=== PATIENT | female | born 1945 | race Caucasian/White ===

== ENCOUNTER 2022-05-18 06:38 | Inpatient (IN) ==
--- NOTE | 2022-04-14 09:23 | PAT Medication Instructions ---
Medication Instructions Date of Service April 14, 2022 Home Medications aspirin 81 mg tablet,delayed release (Aspir-) 81 mg PO HS magnesium oxide 400 mg PO HS simvastatin 40 mg tablet 40 mg PO HS lisinopril 10 mg tablet 10 mg PO HS metformin 500 mg tablet 500 mg PO BID metoprolol tartrate 50 mg tablet 50 mg PO BID DO NOT take the morning of surgery metformin 500 mg tablet 500 mg PO BID Take morning of surgery With a small sip of water, OTHERWISE NOTHING TO EAT OR DRINK AFTER MIDNIGHT: metoprolol tartrate 50 mg tablet 50 mg PO BID Take evening before surgery aspirin 81 mg tablet,delayed release (Aspir-) 81 mg PO HS (unless directed otherwise by surgeon) magnesium oxide 400 mg PO HS simvastatin 40 mg tablet 40 mg PO HS lisinopril 10 mg tablet 10 mg PO HS metformin 500 mg tablet 500 mg PO BID metoprolol tartrate 50 mg tablet 50 mg PO BID Other Notes If you have any questions please call us at [phone] or [phone] or [phone] or [phone]
--- NOTE | 2022-04-20 09:14 | Anesthesiology Consultation ---
Date of Service April 20, 2022 Assessment & Plan (1) Encounter for pre-operative examination: - awaiting PCP pre-op evaluation. - hyperkalemia at 5.7, anemia H&H , abnormal UA and Cr 1.2 relayed to covering physician, Dr. Zac Fernandez who is covering for patient's PCP. He confirmed pt name, and her phone number, states he will be in contact with her today for further evaluation/management of abnormal findings as above. I will also fax optimization form for formal clearance to PCP office. - will request most recent echocardiogram, stress test and carotid doppler. - PONV: pt states without scop patch has done well with recent surgeries including L TKA; in past, required admission for same day surgery due to PONV. - left arm restriction. - awareness during L TKA. - Outpatient joint assessment: Patient is currently scheduled for inpatient pathway. If re-evaluated pending system levels during current pandemic/surgeon requests outpatient pathway, patient is not recommended candidate for outpatient joint program from anesthesia standpoint. - cardiology pre-op evaluation 04/19/22: "...preoperative cardiac clearance...stress echocardiogram 03/2014 1-1.5 mm of horozontal [sic]/downsloping ST depression in the inferior and lateral leads. Exercise stress echo is negative for both ischemia and infarction. 7 METS...echocardiogram 04/2020 EF 60-65%. Carotid duplex 04/2020 no hemodynamically significant ICA stenosis-bilaterally...preoperative risk assessment: doing well from a CV standpoint today. Over the past 30 days there has been no active cardiovascular conditions defined as: acute coronary syndrome, decompensated heart failure, severe or symptomatic valvular heart disease, or cardiac arrhythmias...from a functional capacity standpoint, patient is able to perform activities at or above 4 METS...echocardiogram 05/13/20: EF 60-65%, NRWMA, RV nL, mild mitral calcification, no stenosis. Aortic valve trileaflet, no evidence of stenosis...Based on history, physical examination, and the above information, I do not recommend further invasive or noninvasive cardiovascular testing or procedures. We should proceed with her surgery, accepting the cardiovascular risk involved and under perioperative beta-blockade..." - COVID screening: Per assessment on 04/20/2022: Travel screen negative, no known COVID-19 positive contacts or current COVID-19 related symptoms in past 2 weeks. Pt vaccinated. To surgeon's discretion if preop COVID testing needed. Chart Review Chart Review: Pending: Refer to Additional Notes / Consult section and Patient seen in Pre Admission Testing Teaching & Discussion Pre-Anesthesia Teaching/Discussion Notes: Instructed NPO after midnight before surgery, except medications with 15 cc of water. Medication instructions provided according to the PAT guidelines. History Surgery Operation Date: 05/18/22 14:35 Proposed Procedures p Right Total Knee Arthroplasty - Jayce Rowe MD Height/Weight Height: 5 ft 6 in Weight: 98.2 kg Allergies Allergy/AdvReac Type Severity Reaction Status Date / Time No Known Allergies Allergy Verified 04/13/22 15:03 Medications Home Medications Medication Instructions Recorded Confirmed Last Taken aspirin 81 mg tablet,delayed 81 mg PO HS 03/31/20 04/13/22 Unknown release (Aspir-) magnesium oxide 400 mg PO HS 03/31/20 04/13/22 Unknown simvastatin 40 mg tablet 40 mg PO HS 03/31/20 04/13/22 Unknown lisinopril 10 mg tablet 10 mg PO HS 04/13/22 04/13/22 Unknown metformin 500 mg tablet 500 mg PO BID 04/13/22 04/13/22 Unknown metoprolol tartrate 50 mg tablet 50 mg PO BID 04/13/22 04/13/22 Unknown Past Medical History Medical History (Updated 04/20/22 @ 09:37 by Ami Mcmanus PA-C) Deep vein thrombosis RT/LEFT LEG WITH B/L PE'S (S/P LEFT TKA) 2015. TX WITH ANTICOAGULATION X 3 MONTHS. Diabetes mellitus, type 2 NIDDM Hepatic steatosis Hx of breast cancer 2014 RT - radiation// 11/03/2021 LT -lumpectomy with lymph nodes-left arm restriction Hx of cardiac murmur "systolic murmur" per [facility] records Hyperlipidemia Hypertension controlled, stable per pt Limb alert care status left arm Pulmonary embolism 2015 AFTER KNEE SURGERY (PT WAS ALSO TAKING TAMOXIFEN AT THAT TIME) TOOK BLOOD THINNER FOR 3 MONTHS AFTER DX Patient denies h/o stroke, seizures, heart attack, heart failure or blood transfusions. Exercise / Class Metabolic Activity II 4-5 Yardwork/Stairs/Walk up hill (denies CP or SOB with 1 FOS) Past Family History Family History Mother Family history of diabetes mellitus Brother Family history of diabetes mellitus Past Surgical History Surgical History (Updated 04/20/22 @ 09:38 by Ami Mcmanus PA-C) H/O partial mastectomy RT H/O unilateral oophorectomy History of colonoscopy History of lumpectomy of left breast and lymph node removal breast cancer 10/2021 - limb restriction History of tonsillectomy History of tooth extraction History of total knee replacement LEFT Nausea and vomiting after administration of anesthetic agent Past Anesthesia History No Family Hx of Anesthesia Complications and Other (awareness during L TKA) History of PONV History of PONV (scop patch with initial breast surgery, states without patch with recent surgeries has had mild nausea without vomiting) and Hx of Motion Sickness Social History Smoking Status: Never smoker Do You Dip or Chew Tobacco: No Hx Alcohol Use: Yes Alcohol type: wine alcohol intake frequency: a few times a month Hx Substance Use: No substance use type: does not use Review of Systems Snoring, denies witnessed apneas. Patient denies chest pain, shortness of breath, dyspnea on exertion, reflux, fever, chills, cough, wheezing, or palpitations. Physical Exam Vital Signs Vitals P 65 TEMP 98.4 SP02 98% on RA RESP 17 Physical Full cervical extension range of motion without pain TMD 3.5 finger breadths Mallampati Score 2, small oral opening Dentition: intact, denies chipped or loose teeth, caps/crowns, implants or bridges Lungs: normal respiratory effort. Clear throughout to auscultation, no adventitious breath sounds Cardiac: regular rate and rhythm, no murmurs noted Carotid arteries: negative bruit bilat Lab Results Anesthesia Preop Results Results Anesthesia Widget: WBC 9.69 K/ul (4.8-10.8) 04/20/22 Hgb 10.6 g/dl (12.0-16.0) L 04/20/22 Hct 34.0 % (34.1-44.9) L 04/20/22 Plt 335 K/uL (130-400) 04/20/22 Na 138 mmol/L (136-145) 04/20/22 K 5.7 mmol/L (3.5-5.1) H 04/20/22 Cl 108 mmol/L (98-107) H 04/20/22 CO2 23 mmol/L (21-32) 04/20/22 BUN 28 mg/dl (6-23) H 04/20/22 Creat 1.27 mg/dl (0.6-1.2) H 04/20/22 Glucose Level 119 mg/dl (70-99(Fasting)) H 04/20/22 PT 10.2 Seconds (9.0-12.0) 04/20/22 PTT 26.0 Seconds (21.0-31.0) 04/20/22 INR 1.0 (0.9-1.1) 04/20/22 HA1c 7.6 % (4.5-5.6) H 04/20/22 Urine Color Yellow 04/20/22 Urine Appearance Cloudy (Clear) A 04/20/22 Urine pH 5.0 (4.5-7.5) 04/20/22 Urine Specific Bertram 1.023 (1.000-1.030) 04/20/22 Urine Protein Negative (Negative) 04/20/22 Urine Glucose (UA) Negative (Negative) 04/20/22 Urine Ketones Trace (Negative) H 04/20/22 Urine Blood Negative (Negative) 04/20/22 Urine Nitrite Negative (Negative) 04/20/22 Urine Bilirubin Negative (Negative) 04/20/22 Urine Urobilinogen Negative (Negative) 04/20/22 Urine Leukocyte Esterase 1+ (Negative) H 04/20/22 Urine WBC (Auto) 10-30 /hpf (0-5) H 04/20/22 Urine RBC (Auto) 0-4 /hpf (0-4) 04/20/22 Urine Hyaline Casts (Auto) 1-5 /lpf (0-5) 04/20/22 Urine Epithelial Cells (Auto) >30 /lpf (0-5) H 04/20/22 Urine Bacteria (Auto) 2+ (Negative) H 04/20/22 Blood Type A Positive 04/20/22 Antibody Screen NEGATIVE 04/20/22 Testing Electrocardiogram Date: 03/28/22 Sinus rhythm, rate 92 bpm Nonspecific T wave abnormality Chest X-Ray Date: 04/20/22 PA and lateral chest radiographs are compared to study dated 04/05/2020 and correlated with chest CT dated 06/14/2015. The cardiomediastinal silhouette is unremarkable. Chronic interstitial thickening is similar to previous. There is mild bibasilar scarring/atelectasis. The lungs and pleural spaces are otherwise clear. There is no pneumothorax. The skeletal structures are osteopenic. The bony thorax appears intact. Arthritic change is noted in the shoulders and spine. IMPRESSION: No active disease in the chest.
--- NOTE | 2022-05-17 17:36 | History & Physical Report ---
Date of Service May 17, 2022 Assessment & Plan (1) Primary osteoarthritis of right knee: Plan: Treatment options discussed with the patient. She is failed conservative measures and would like to proceed with knee replacement. Risks, benefits and alternatives to surgery including but not limited to infection, DVT, pain, stiffness, need for revision surgery, damage to blood vessels, damage to nerves, PE, , were discussed with the patient and they wish to proceed. Plan on right total knee arthroplasty about Dr. Rowe on May 18. We will plan on outpatient physical therapy. Reported on Xarelto postop DVT prophylaxis due to history of PE. All questions answered. Follow-up postop. History of Present Illness Chief Complaint: Right knee pain Primary Care Provider: Trent Serrano DO 76-year-old female with past medical history significant for diabetes, hypertension, high cholesterol, PE, breast cancer who presents with ongoing right knee pain. She has failed conservative measures. Patient's pain is interfering with her daily activities. She would like proceed with knee replace ment. Patient denies headaches, sweats, fevers, chills, double vision, blurred vision, cough, sore throat, dysphagia, chest pain, sob, wheezing, n/v/d/c, numbness, tingling, fatigue, urinary symptoms, mood disorders. ROS positive for right knee pain and stiffness. Allergies Allergy/AdvReac Type Severity Reaction Status Date / Time No Known Allergies Allergy Verified 04/13/22 15:03 Home Medications Medication Instructions Recorded Confirmed Type aspirin 81 mg tablet,delayed 81 mg PO HS 03/31/20 04/13/22 History release (Aspir-) magnesium oxide 400 mg PO HS 03/31/20 04/13/22 History simvastatin 40 mg tablet 40 mg PO HS 03/31/20 04/13/22 History lisinopril 10 mg tablet 10 mg PO HS 04/13/22 04/13/22 History metformin 500 mg tablet 500 mg PO BID 04/13/22 04/13/22 History metoprolol tartrate 50 mg tablet 50 mg PO BID 04/13/22 04/13/22 History Past Med/Surg History Medical History (Updated 05/17/22 @ 17:41 by Gennaro Espinal PA-C) Deep vein thrombosis RT/LEFT LEG WITH B/L PE'S (S/P LEFT TKA) 2015. TX WITH ANTICOAGULATION X 3 MONTHS. Diabetes mellitus, type 2 NIDDM Hepatic steatosis Hx of breast cancer 2014 RT - radiation// 11/03/2021 LT -lumpectomy with lymph nodes-left arm restriction Hx of cardiac murmur "systolic murmur" per [facility] records Hyperlipidemia Hypertension controlled, stable per pt Limb alert care status left arm Pulmonary embolism 2016 AFTER KNEE SURGERY (PT WAS ALSO TAKING TAMOXIFEN AT THAT TIME) TOOK BLOOD THINNER FOR 3 MONTHS AFTER DX Surgical History (Updated 04/20/22 @ 09:38 by Ami Mcmanus PA-C) H/O partial mastectomy RT H/O unilateral oophorectomy History of colonoscopy History of lumpectomy of left breast and lymph node removal breast cancer 10/2021 - limb restriction History of tonsillectomy History of tooth extraction History of total knee replacement LEFT Nausea and vomiting after administration of anesthetic agent Family History Mother Family history of diabetes mellitus Brother Family history of diabetes mellitus Social History Smoking Status: Never smoker Second Hand Exposure: No; Hx Alcohol Use: Yes Alcohol type: wine Hx Substance Use: No Preferred Language: Estonian Communication Ability: Effective Property Claims Manager Required: No Beliefs That Will Affect Care: None Current Living Situation: Alone Current Living Situation Comment: Daughter staying with pt post op Feels Safe at Home: Yes Assistive Devices: None Review of Systems All systems reviewed & are unremarkable except as noted in HPI & below Physical Exam Constitutional: well developed and well nourished; no acute distress Eyes: PERRL, conjunctivae normal, anicteric sclerae ENMT: external ear and nose normal, oropharynx normal Neck: trachea midline, no thyromegaly Respiratory: normal respiratory effort, lungs clear to auscultation Cardiovascular: RRR, no murmur, no edema Musculoskeletal: Right knee: Varus alignment. Mild joint effusion with medial joint line tenderness. Mild crepitation with motion. Positive Latia's. Stable to valgus and varus stress test. Range of motion is 10 to 100 degrees. Skin: no rashes, warm and dry Neurologic: patellar DTR's 2+ bilat, sensation intact Psychiatric: A+Ox3, euthymic affect Results & Data ([facility]) Diagnostic Findings Right knee radiographs demonstrate end-stage osteoarthritis right knee with tricompartmental osteoarthritic changes with subluxation of femur on tibia. Patient has [id number] medial compartment.
[~2022-05-18 06:38] MED LIST: ACETAMINOPHEN 500 MG TAB PO SCH; BUPIVACAINE 0.25% 30 ML VIAL ONE; BUPIVACAINE 0.5 % 5 MG/1 ML PF 10ML VIAL ONE; CeleBREX 200 MG CAP PO SCH; FAMOTIDINE 20 MG TAB PO SCH; GABAPENTIN 300 MG CAP PO SCH; LR 15ML/HR IV SCH; METOCLOPRAMIDE HCL 10 MG TABLET PO SCH; ROPIVACAINE 0.5% HCL/PF 150 MG, BUPIVACAINE 0.75% MPF 20 ML, EPINEPHrine 30MG/30ML (OR ... INSTIL SCH; TRANEXAMIC ACID 1,000 MG **IV Intra-op IV SCH; TRANEXAMIC ACID 1,000 MG **IV Pre-op IV SCH; ceFAZolin 2000MG 2,000 MG/15 ML SYR IV SCH
[2022-05-18] MEDS ORDERED: LIDOCAINE 2% 20 MG/ML 5 ML SYR IV ONE (06:51)
[2022-05-18] MEDS ORDERED: PROPOFOL IV EMULSION 10 MG/ML 20 ML VIAL IV ONE ×5 (06:51→15:21)
[2022-05-18] MEDS ORDERED: MIDAZOLAM HCL 1 MG/ML 2ML VIAL ONE (06:52)
[2022-05-18] MEDS ORDERED: fentaNYL citrate 100 MCG/2 ML VIAL ONE ×2 (06:52→10:55)
[2022-05-18] MEDS ORDERED: ORTHO JOINT ANESTHETIC ONE (07:04)
--- NOTE | 2022-05-18 07:30 | History & Physical Bridge Note ---
Date of Service May 18, 2022 History & Physical Bridge Note I have examined the patient, reviewed the History & Physical and in the interval since the performance of the History & Physical I have noted the following changes of clinical significance: no changes noted
[2022-05-18] MEDS ORDERED: ATROPINE SULFATE 0.1 MG/ML 10ML SYR IV PRN (08:18)
[2022-05-18] MEDS ORDERED: HYDROmorphone INJ 1 MG/ML SYRINGE IV PRN (08:18)
[2022-05-18] MEDS ORDERED: ONDANSETRON INJ 2 MG/ML 2 ML VIAL IV PRN (08:18)
[2022-05-18] MEDS ORDERED: fentaNYL citrate 100 MCG/2 ML VIAL IV PRN (08:18)
[2022-05-18] MEDS ORDERED: ePHEDrine sulfate 50 MG/ML AMP IV PRN (08:18)
[2022-05-18] MEDS ORDERED: PHENYLEPHRINE HCL 10 MG/ML VIAL ONE (09:55)
[2022-05-18] MEDS ORDERED: ONDANSETRON INJ 2 MG/ML 2 ML VIAL ONE ×2 (10:01→11:00)
--- NOTE | 2022-05-18 11:08 | Post Operative Brief Note ---
Immediate Post Op Note v1 Date of Surgery May 18, 2022 Pre & Post Diagnosis Operation Date: 05/18/22 09:10 Pre-Op Diagnosis: Primary Osteoarthritis of Right Knee Post-Op Diagnosis: Primary Osteoarthritis of Right Knee I identified the patient and participated in the time-out.: Yes Procedure Operation Date: 05/18/22 09:10 Actual Procedures p Right Total Knee Arthroplasty(Right) - Jayce Rowe MD Surgeon Jayce Rowe MD Security Installer Jimbo ANGUIANO Estimated Blood Loss 5 Findings Consistent with Post-Op Diagnosis Specimens Bone cuts Drains Hemovac Drain Anesthesia Type MAC Spinal Regional Complications none Disposition Disposition: Recovery Room Overlapping Procedure I was present for: the critical portions of procedure.
--- NOTE | 2022-05-18 11:18 | Operative Report ---
Post Operative Report Pre & Post Diagnosis Operation Date: 05/18/22 09:10 Pre-Op Diagnosis: Primary Osteoarthritis of Right Knee Post-Op Diagnosis: Primary Osteoarthritis of Right Knee I identified the patient and participated in the time-out.: Yes Procedure Operation Date: 05/18/22 09:10 Actual Procedures p Right Total Knee Arthroplasty(Right), application superficial wound VAC- Jayce Rowe MD Surgeon Jayce Rowe MD Appraiser Jimbo ANGUIANO Estimated Blood Loss 5 Findings Consistent with Post-Op Diagnosis Specimens Bone cuts Drains 2 Hemovac Anesthesia Type MAC Spinal Regional Complications none Disposition Accompanied Patient To Recovery: No Indications 76-year-old female with end-stage osteoarthritis of her right knee. She has limited range of motion and pain and [id number] medial compartment with varus knee with tricompartmental osteoarthritic changes. Description of Procedure The patient was taken to the operating room and anesthetized under spinal MAC regional block. Patient was placed supine on the the operating table. A pneumatic tourniquet was placed about the right upper thigh. The knee exam demonstrated 10 through 90 degrees range of motion and stiff knee no varus valgus instability no pseudolaxity positive Christina exam. The involved leg was elevated exsanguinated with Esmarch bandage and the pneumatic tourniquet was raised to 325 millimeters mercury. A longitudinal incision was made across the anterior knee. Skin flaps were elevated. An incision was made into the medial retinaculum and extended up into the mid third of the quadriceps tendon and extended down to the tibial tubercle. Intra-articular findings demonstrated tricompartmental osteoarthritis [id number] eburnated bone medial compartment but osteoarthritic changes in all compartments. Multiple loose bodies chronic medial meniscus tear. There were large notch osteophytes closing the notch. The knee was exposed by excising the posterior cruciate ligament and menisci and all loose bodies. The infrapatellar fat pad was resected. The fat pad over the anterior femur at the upper aspect of the articular surface was resected for placement of the component in that area. A subperiosteal peel lateral release was performed around the patella. The [employer]nez [employer]hew journey 2.0 total knee arthroplasty system was utilized for the procedure. The custom femoral cutting guide was pinned in position. The distal femoral cut was made. The size 5, 5 in 1 cutting block was placed. The anterior posterior and chamfer cuts were made. The knee was extended and a free hand cut technique was performed to the patella. The patella with was measured and the width was reproduced using a 32 symmetrical patella component. 3 drill holes are made for the patella component pegs. The tibia was then subluxed. The custom tibial cutting block was pinned in position and the proximal tibial cut was made with the oscillating saw. The size 4 tibial trial was externally rotated in line with the tibial tubercle and pinned in position. The punch for the stem was used. The femoral trial was inserted and centered the notch cutting devices were used and the collet was placed. Tibial trials were used for the insert. The size 12 posterior stabilized trial gave balanced ligaments through full range of motion. Patella tracking was assessed with range of motion. The patella tracked centrally. The trials were removed. The Orthomix anesthetic cocktail was injected per protocol. The cut bone surfaces and soft tissue were copiously irrigated with pulsatile lavage saline solution. The final components were cemented with Simplex cement. The final components were Mart[employer]hew journey 2.0 right posterior stabilized femoral component, size 4 right tibial component, 12 right posterior stabilized tibial polyethylene and a 32 symmetrical patella. After the cement cured, the Betadine soak was used for 3 minutes. The knee was then copiously irrigated with pulsatile lavage saline solution. 2 drains were brought out laterally connected to Hemovac. The quadriceps tendon and medial retinaculum were closed with interrupted [id number] #1 Vicryl sutures. The knee was taken through full range of motion and repair was secure. Knee range of motion was 0 through 130 degrees. the subcutaneous tissues were closed with 2-0 Vicryl sutures. The skin was closed with leonora. Manpreet and Acticoat superficial wound VAC was applied. The tourniquet was let down and the patient had good capillary refill to the extremity. The patient tolerated the procedure well. My physician human resource assistant Jimbo ANGUIANO participated as surgical first assistant and was integral part in all aspects of the procedure including prepping, draping, leg positioning, soft tissue retraction, instrument management and assisted in the closure, application of a manpreet and Acticoat superficial wound VAC and will participate in postoperative care the patient. I attest to the content of the Intraoperative Record and any orders documented therein. Any exceptions are noted below.
--- NOTE | 2022-05-18 12:37 | XRay Report ---
RIGHT KNEE 2 VIEWS History: Right total knee arthroplasty. Degenerative arthritis. Postop. FINDINGS: The patient is status post a right total knee arthroplasty. The hardware is intact. No frac ture or dislocation. Skin leonora and surgical drains are in place. IMPRESSION: Right total knee arthroplasty. No evidence for hardware complication. ACT 112: Negative or not required by law. Electronically signed by: Robert Stinson M.D. 05/18/2022 12:36 PM
[2022-05-18] MEDS ORDERED: diphenhydrAMINE 50 MG/ML VIAL IV PRN (12:47)
[2022-05-18] MEDS ORDERED: MAGNESIUM HYDROXIDE SUSP 30 ML UDC PO PRN (12:47)
[2022-05-18] MEDS ORDERED: oxyCODONE HCL IR 5 MG TAB (IMMEDIATE RELEASE) PO PRN (12:47)
[2022-05-18] MEDS ORDERED: NALOXONE HCL 0.4 MG/1 ML VIAL/CARP IV PRN (12:47)
[2022-05-18] MEDS ORDERED: PHARMACY GLYCEMIC MGMT CONSULT PRN (12:47)
[2022-05-18] MEDS ORDERED: bisacodyL 10 MG SUPP PR PRN (12:47)
[2022-05-18] MEDS ORDERED: GLUCOSE 40% GEL 15 GM TUBE PO PRN (13:00)
[2022-05-18] MEDS ORDERED: GLUCAGON FOR INJ 1 MG VIAL IM PRN (13:00)
[2022-05-18] MEDS ORDERED: DEXTROSE 50% 50 ML SYRINGE IV PRN (13:00)
[2022-05-18] MEDS ORDERED: CARBOHYDRATES FOR HYPOGLYCEMIA PO PRN (13:00)
[2022-05-18] MEDS ORDERED: GLUCOSE 10 TAB/TUBE PO PRN (13:00)
[2022-05-18] MEDS: SODIUM CHLORIDE 0.9% 1000ML 1,000 ML IV SCH ×2 (14:07→21:50)
--- NOTE | 2022-05-18 14:23 | Pharmacy Report ---
Pharmacy Glycemic Short Note 2 - Date of Service May 18, 2022 - Glycemic Short BSG Results (Last 24 hours): 05/18/22 05/18/22 05/18/22 06:58 11:49 14:09 POC Glucose 149 H 123 H 158 H OUTPATIENT ANTIDIABETIC REGIMEN: * metformin 500 mg PO BID * HbA1C = 7.6% (04/20/22) ASSESSMENT: * Ms Fish is a 76 y/o F with a PMH of T2 DM who presents for R TKA. * Patient's BSGs prior to surgery were 149-123 mg/dL and after surgery were 158 mg/dL. * Based upon HbA1C, start lantus 0.2 units/kg or 20 units daily. * Novolog weight-based stress of 2. * Plan to resume metformin tomorrow. PLAN FOR INPATIENT GLYCEMIC CONTROL: * Hold outpatient oral diabetes medications * Basal insulin * Lantus 20 units SQ daily starting 05/18/22 * Bolus insulin * NovoLog per scale ACHS or Q6hrs while NPO * Goal Range: Low 110 mg/dL - High 140 mg/dL * Correction Factor: 25 mg/dL/unit * Nutritional / Prandial insulin per carb ratio of 1 unit per 8 grams CHO consumed
[2022-05-18] MEDS: ONDANSETRON INJ 2 MG/ML 2 ML VIAL IV PRN (14:35)
[2022-05-18] MEDS: ACETAMINOPHEN 500 MG TAB PO SCH ×2 (14:55→21:51)
--- NOTE | 2022-05-18 15:42 | Hospitalist Consultation ---
Date of Consultation May 18, 2022 Assessment & Plan (1) Status post total right knee replacement: POD#0 Pain and VTE management per orthopedics (2) History of pulmonary embolism: s/p left TKA in 2016 (while also taking tamoxifen). Agree with prophylactic Xarelto. (3) Hx of breast cancer: 2014 right - radiation 11/03/2021 left - lumpectomy with lymph nodes-left arm restriction (4) Hypertension: Continue lisinopril 10mg PO HS and metoprolol tartrate 50mg PO BID (5) Hyperlipidemia: Continue simvastatin 40mg PO HS (6) Diabetes mellitus, type 2: HbA1C 7.6 - can continue metformin alone on discharge - PCP to consider up titrating dose Continue pharmacy glycemic control during inpatient stay Plan VTE Prophylaxis - per orthopedics, Xarelto 10mg PO daily Diet - T2DM Disposition - per orthopedics, no ongoing medical issues requiring extended stay Thank you for the consult. We will review patient with AM labs tomorrow. History of Present Illness Reason for Consultation: Post operative management Attending Physician: Jayce Rowe MD History of Present Illness Bren Fish is a 76 year old female here for elective right total knee arthro plasty performed by Dr Rowe today. No post operative complications noted with estimated blood loss of 5ml. She denies any acute concerns or questions. No shortness of breath or chest pain. She has a significant history of bilateral pulmonary embolism following her prior knee operation however this was also while taking tamoxifen. She has type 2 diabetes with HbA1C 7.6 at the beginning of April - treated with metformin 500mg PO BID. She has hypertension - taking metoprolol tartrate 50mg PO BID and lisinopril 10mg PO HS - she reports this is well controlled. She has hyperlipidemia without any prior heart attack or stroke - taking simvastatin 40mg PO HS for this Allergies Allergy/AdvReac Type Severity Reaction Status Date / Time No Known Allergies Allergy Verified 05/18/22 07:02 Home Medications Medication Instructions Recorded Confirmed Type aspirin 81 mg tablet,delayed 81 mg PO HS 03/31/20 05/18/22 History release (Aspir-) magnesium oxide 400 mg PO HS 03/31/20 05/18/22 History simvastatin 40 mg tablet 40 mg PO HS 03/31/20 05/18/22 History lisinopril 10 mg tablet 10 mg PO HS 04/13/22 05/18/22 History metformin 500 mg tablet 500 mg PO BID 04/13/22 05/18/22 History metoprolol tartrate 50 mg tablet 50 mg PO BID 04/13/22 05/18/22 History Patient History Medical History (Updated 05/18/22 @ 15:45 by Meng De La Cruz MD) Deep vein thrombosis RT/LEFT LEG WITH B/L PE'S (S/P LEFT TKA) 2015. TX WITH ANTICOAGULATION X 3 MONTHS. Diabetes mellitus, type 2 NIDDM Hepatic steatosis Hx of breast cancer 2014 RT - radiation// 11/03/2021 LT -lumpectomy with lymph nodes-left arm restriction Hx of cardiac murmur "systolic murmur" per [facility] records Hyperlipidemia Hypertension controlled, stable per pt Limb alert care status left arm Pulmonary embolism 2016 AFTER KNEE SURGERY (PT WAS ALSO TAKING TAMOXIFEN AT THAT TIME) TOOK BLOOD THINNER FOR 3 MONTHS AFTER DX Surgical History (Updated 05/18/22 @ 15:40 by Meng De La Cruz MD) H/O partial mastectomy RT H/O unilateral oophorectomy History of colonoscopy History of lumpectomy of left breast and lymph node removal breast cancer 10/2021 - limb restriction History of tonsillectomy History of tooth extraction History of total knee replacement LEFT Nausea and vomiting after administration of anesthetic agent Family History Mother Family history of diabetes mellitus Brother Family history of diabetes mellitus Social History Smoking Status: Never smoker Second Hand Exposure: No; Do You Dip or Chew Tobacco: No; Tobacco Cessation Education Requested by Patient: No Hx Alcohol Use: Yes Alcohol type: wine Hx Substance Use: No Preferred Language: Greenlandic Communication Ability: Effective Calender Supervisor Required: No Beliefs That Will Affect Care: None Current Living Situation: Alone Current Living Situation Comment: Daughter staying with pt post op Other Information That Helps Us Care for You: No Feels Safe at Home: Yes Safety Concerns: Feels Safe At This Time Assistive Devices: None Review of Systems Review of Systems: All systems reviewed & are unremarkable except as noted in HPI & below Physical Exam Constitutional: WD/WN, vitals as above Eyes: + anicteric sclerae; normal pupil size ENMT: external ear and nose normal, oropharynx normal Neck: trachea midline, no thyromegaly Cardiovascular: Rate/Rhythm: regular rate and regular rhythm Heart Sounds: + murmur (systolic 4/6 LUSB) Extremities: normal capillary refill; no calf tenderness and no pedal edema Gastrointestinal (Abdomen): normal bowel sounds, soft, nontender, no hepatosplenomegaly Musculoskeletal: Neurovascularly intact distal to operation site with normal cap refill (unable to test DP/PT pulses due to surgical dressing) Skin: no rashes, warm and dry Neurologic: moves all extremities and awake; not confused Psychiatric: A+Ox3, euthymic affect Results & Data Results & Data ([facility]) Vital Signs (Past 12 Hours) Vital Signs Temp Pulse Pulse Resp BP Pulse Ox O2 Del Method 05/18/22 15:03 36.2 C L 78 18 113/70 92 Room Air 05/18/22 14:31 73 18 127/58 L 92 Room Air 05/18/22 13:50 36.6 C 71 16 118/68 Room Air 05/18/22 13:30 72 18 128/58 L 94 Room Air 05/18/22 13:15 69 18 127/54 L 94 Room Air 05/18/22 13:00 36.2 C L 72 18 123/54 L 93 Room Air 05/18/22 12:45 72 18 128/59 L 94 Room Air 05/18/22 12:35 66 14 127/54 L 97 Room Air 05/18/22 12:25 65 14 125/60 96 Room Air 05/18/22 12:15 64 12 115/59 L 97 Room Air 05/18/22 12:05 36.3 C L 65 14 132/62 94 Room Air 05/18/22 11:55 67 15 119/61 98 Room Air 05/18/22 11:45 74 13 116/68 98 Room Air 05/18/22 11:39 36.0 C L 67 19 123/60 99 Room Air 05/18/22 07:09 36.9 C 74 20 152/70 H 97 Room Air PG Care Time/CCT Total # of Minutes Spent Total Time Spent with Patient: Total time spent is greater than 50% in coordination of care (as documented) at patient's floor/unit and/or counseling patient: Coding Level of Care Code 65512 Inpt Consult Level 3 Diagnoses Status post total right knee replacement Z96.651 History of pulmonary embolism Z86.711 Hx of breast cancer Z85.3 Hypertension I10 Hyperlipidemia E78.5 Diabetes mellitus, type 2 E11.9
[2022-05-18] MEDS: INSULIN ASPART PER UNIT SC SCH ×3 (15:57→21:04)
[2022-05-18] MEDS ORDERED: LANTUS PER UNIT CHARGE SQ SCH (16:30)
--- NOTE | 2022-05-18 16:59 | Anesthesiology Progress Note ---
Date of Service May 18, 2022 Anesthesia Post Procedure Vital Signs Vital Signs: Temp Pulse Pulse Resp BP Pulse Ox O2 Del Method 05/18/22 15:03 36.2 C L 78 18 113/70 92 Room Air 05/18/22 14:31 73 18 127/58 L 92 Room Air 05/18/22 13:50 36.6 C 71 16 118/68 Room Air 05/18/22 13:30 72 18 128/58 L 94 Room Air 05/18/22 13:15 69 18 127/54 L 94 Room Air 05/18/22 13:00 36.2 C L 72 18 123/54 L 93 Room Air 05/18/22 12:45 72 18 128/59 L 94 Room Air 05/18/22 12:35 66 14 127/54 L 97 Room Air 05/18/22 12:25 65 14 125/60 96 Room Air 05/18/22 12:15 64 12 115/59 L 97 Room Air 05/18/22 12:05 36.3 C L 65 14 132/62 94 Room Air 05/18/22 11:55 67 15 119/61 98 Room Air 05/18/22 11:45 74 13 116/68 98 Room Air 05/18/22 11:39 36.0 C L 67 19 123/60 99 Room Air 05/18/22 07:09 36.9 C 74 20 152/70 H 97 Room Air Pain Intensity Right Knee: Pain Intensity: 4 Transfer of Care Handoff Completed per policy Notes Mental Status: alert / awake / arousable and participated in evaluation Patient Amnestic to Procedure: Yes Nausea / Vomiting: adequately controlled Pain: adequately controlled Airway Patency, RR, SpO2: stable & adequate BP & HR: stable & adequate Hydration State: stable & adequate Neuraxial Anesthesia: was administered and sensory block is resolving Anesthetic Complications: no major complications apparent and Pt Satisfied with anesthetic care
[2022-05-18] MEDS ORDERED: PNEUMOCOCCAL Polysaccharide Vaccine 25mcg/0.5mL vial/Syr IM ONE (18:00)
[2022-05-18] MEDS ORDERED: Flu Vaccine-High Dose (Fluzone-HD) PF 65+ 0.7mL SYR IM ONE (18:00)
[2022-05-18] MEDS: ceFAZolin 2000MG 2,000 MG/15 ML SYR IV SCH (19:03)
[2022-05-18] MEDS ORDERED: metFORMIN HCL 500 MG TAB PO SCH (21:00)
[2022-05-18] MEDS: METOPROLOL TARTRATE 50 MG TAB PO SCH (21:02)
[2022-05-18] MEDS: lisinopril 10 MG TAB PO SCH (21:06)
[2022-05-18] MEDS: ASPIRIN 81 MG ECTAB PO SCH (21:51)
[2022-05-18] MEDS: MAGNESIUM OXIDE 400 MG TAB PO SCH (21:52)
[2022-05-18] MEDS: SIMVASTATIN 40 MG TAB PO SCH (21:52)
[2022-05-18] MEDS: SENNA 8.6 MG TAB PO SCH (21:53)
[2022-05-18] MEDS: DOCUSATE SODIUM 100 MG CAP PO SCH (21:53)
[2022-05-19] MEDS: ceFAZolin 2000MG 2,000 MG/15 ML SYR IV SCH (01:10)
[2022-05-19] MEDS: ACETAMINOPHEN 500 MG TAB PO SCH (05:02)
--- NOTE | 2022-05-19 09:09 | Pharmacy Report ---
Pharmacy Glycemic Sign Off Nt - Date of Service May 19, 2022 - Assessment & Plan ASSESSMENT: * Pharmacy was consulted by Jimbo Davison PA-C, on 05/18/22 for glycemic control and to write orders per [facility] inpatient glycemic control protocol. * Major changes made by pharmacy to antidiabetic regimen include: * Gave a one time dose of basal insulin to cover steroids received intraop. * Started bolus insulin for correctional/prandial needs. * Resumed Metformin today and removed carb ratio. * Patient required 26 units of insulin yesterday for adequate glycemic control * BSGs ranging 123-158 mg/dl * Regimen has only required minor adjustments over the past 48hrs to achieve this level of control * Do not anticipate further changes in patient status that would quickly deteriorate glycemic control (i.e. patient to be NPO for upcoming procedure, steroids tapering, starting tube feedings, etc). * Resume Metformin upon discharge. PLAN FOR INPATIENT GLYCEMIC CONTROL: No changes needed to current regimen. * No basal insulin * Continue Metformin 500 mg PO BIDM * Continue NovoLog per scale ACHS/Q6hrs while NPO * Goal range = 110-140 mg/dl * CF = 25 mg/dl/unit * No carb ratio * Pharmacy is signing off of glycemic consult and will no longer be making adjustments to inpatient regimen. Please feel free to re-consult if needed. Thank you.
[2022-05-19] MEDS: METOPROLOL TARTRATE 50 MG TAB PO SCH ×2 (09:14→21:03)
[2022-05-19] MEDS: DOCUSATE SODIUM 100 MG CAP PO SCH ×2 (09:14→21:03)
[2022-05-19] MEDS: RIVAROXABAN 10 MG TABLET PO SCH (09:14)
[2022-05-19] MEDS: MULTIVITAMIN TAB PO SCH (09:15)
[2022-05-19] MEDS: INSULIN ASPART PER UNIT SC SCH ×4 (09:26→21:03)
[2022-05-19] MEDS: metFORMIN HCL 500 MG TAB PO SCH ×2 (09:26→16:53)
[2022-05-19 09:33] LABS: Hematocrit (blood only) 29.3 % (34.1-44.9); Hemoglobin 9.4 g/dl (12.0-16.0); Mean Corpuscular Hemoglobin 29.7 pg (25.0-34.0); Mean Corpuscular Hgb Conc 32.1 g/dL (32.0-36.0); Mean Corpuscular Volume 92.7 fL (80.0-100.0); Mean Platelet Volume 11.7 fL (9.4-12.3); Platelet Count 261 K/uL (130-400); RDW Coefficient of Variation 12.6 % (11.5-14.5); Red Blood Count 3.16 M/uL (3.93-5.22); White Blood Count 10.07 K/ul (4.8-10.8)
[2022-05-19 09:58] LABS: Calcium 8.2 mg/dl (8.5-10.1); Creatinine Clr Calc Pharmacy 39.3 ml/min; Est GFR (African American) 39.8 ml/min; Est GFR (Non-African American) 34.3 ml/min; Potassium 4.8 mmol/L (3.5-5.1)
--- NOTE | 2022-05-19 10:26 | Orthopedic Progress Note ---
Date of Service May 19, 2022 Assessment & Plan (1) Primary osteoarthritis of right knee: Plan: POD 1 s/p Right TKA PT/OT. Progressing well DVT prophylaxis - Rivaroxaban daily, SCD's, BINH's Pain management as written. DC planning - OPPT upon dc. Admission and Anticipated Discharge Date Admission Date: May 18, 2022 Subjective POD 1 Pt sitting in her chair at bedside. Completed PT/OT this AM and progressed well. No complaints. Pain controlled. Mild increase in Creatinine this AM Physical Exam Physical Exam: Dressings C/D/I. Calves soft, NT. NV intact. Toes mobile. Good DF/PF of right foot. Results & Data ([facility]) Vital Signs (Past 12 Hours) Vital Signs Temp Pulse Resp BP Pulse Ox O2 Del Method 05/19/22 08:01 37 C 82 20 130/74 96 Room Air 05/19/22 05:00 36.6 C 83 18 136/73 95 Room Air 05/18/22 22:43 36.9 C 82 18 115/67 96 Room Air Laboratory Results Laboratory Results WBC 10.07 K/ul (4.8-10.8) 05/19/22 09:20 RBC 3.16 M/uL (3.93-5.22) L 05/19/22 09:20 Hgb 9.4 g/dl (12.0-16.0) L 05/19/22 09:20 Hct 29.3 % (34.1-44.9) L 05/19/22 09:20 MCV 92.7 fL (80.0-100.0) 05/19/22 09:20 MCH 29.7 pg (25.0-34.0) 05/19/22 09:20 MCHC 32.1 g/dL (32.0-36.0) 05/19/22 09:20 RDW Std Deviation 43.0 fL (36.4-46.3) 05/19/22 09:20 RDW Coeff of Juan J 12.6 % (11.5-14.5) 05/19/22 09:20 Plt Count 261 K/uL (130-400) 05/19/22 09:20 MPV 11.7 fL (9.4-12.3) 05/19/22 09:20 Sodium 136 mmol/L (136-145) 05/19/22 09:20 Potassium 4.8 mmol/L (3.5-5.1) 05/19/22 09:20 Chloride 108 mmol/L (98-107) H 05/19/22 09:20 Carbon Dioxide 21 mmol/L (21-32) 05/19/22 09:20 Anion Gap 7 (3-11) 05/19/22 09:20 BUN 25 mg/dl (6-23) H 05/19/22 09:20 Creatinine 1.47 mg/dl (0.6-1.2) H 05/19/22 09:20 Est Cr Clr Drug Dosing 39.3 ml/min 05/19/22 09:20 Est GFR ( Amer) 39.8 ml/min 05/19/22 09:20 Est GFR (Non-Af Amer) 34.3 ml/min 05/19/22 09:20 BUN/Creatinine Ratio 17.0 (10-20) 05/19/22 09:20 Glucose 219 mg/dl (70-99(Fasting)) H 05/19/22 09:20 POC Glucose 152 mg/dl (70-99) H 05/19/22 08:08 Calcium 8.2 mg/dl (8.5-10.1) L 05/19/22 09:20 SARS-CoV-2, RNA, NAAT NEGATIVE (NEGATIVE) 05/18/22 06:59 Impressions Knee X-Ray 05/18/22 11:47 RIGHT KNEE 2 VIEWS History: Right total knee arthroplasty. Degenerative arthritis. Postop. FINDINGS: The patient is status post a right total knee arthroplasty. The hardware is intact. No fracture or dislocation. Skin leonora and surgical drains are in place. IMPRESSION: Right total knee arthroplasty. No evidence for hardware complication. ACT 112: Negative or not required by law. Electronically signed by: Robert Stinson M.D. 05/18/2022 12:36 PM
[2022-05-19 11:06] LABS: Basophils # (auto) 0.11 K/uL (0-0.2); Basophils % (auto) 0.8 %; Eosinophils # (auto) 0.36 K/uL (0-0.50); Eosinophils % (auto) 2.6 %; Hematocrit (blood only) 30.6 % (34.1-44.9); Hemoglobin 9.9 g/dl (12.0-16.0); Immature Granulocytes # (auto) 0.04 K/uL (0.00-0.02); Immature Granulocytes % (auto) 0.3 %; Lymphocytes % (auto) 24.2 %; Mean Corpuscular Hemoglobin 29.8 pg (25.0-34.0); Mean Corpuscular Hgb Conc 32.4 g/dL (32.0-36.0); Mean Corpuscular Volume 92.2 fL (80.0-100.0); Mean Platelet Volume 11.9 fL (9.4-12.3); Monocytes # (auto) 1.63 K/uL (0.24-0.82); Monocytes % (auto) 11.9 %; Neutrophils # (auto) 8.21 K/uL (1.4-6.5); Neutrophils % (auto) 60.2 %; Platelet Count 296 K/uL (130-400); RDW Coefficient of Variation 12.6 % (11.5-14.5); RDW Standard Deviation 42.3 fL (36.4-46.3); Red Blood Count 3.32 M/uL (3.93-5.22); White Blood Count 13.65 K/ul (4.8-10.8)
[2022-05-19] MEDS ORDERED: SODIUM CHLORIDE 0.9% 1000ML 1,000 ML IV ONE (11:11)
[2022-05-19 11:30] LABS: Albumin Globulin Ratio 1.4 (0.9-2); Albumin Level 3.4 gm/dl (3.4-5.0); BUN Creatinine Ratio 16.2 (10-20); Bilirubin,Total 0.5 mg/dl (0.2-1.0); Calcium 8.6 mg/dl (8.5-10.1); Creatinine Clr Calc Pharmacy 37.5 ml/min; Est GFR (African American) 37.6 ml/min; Est GFR (Non-African American) 32.4 ml/min; Globulin 2.5 gm/dl (2.5-4.0); Magnesium 2.2 mg/dl (1.7-2.4); Potassium 4.5 mmol/L (3.5-5.1); Total Protein 5.9 gm/dl (6.0-8.3)
--- NOTE | 2022-05-19 13:06 | Hospitalist Progress Note ---
Date of Service May 19, 2022 Assessment & Plan (1) Vasovagal syncope: Plan: LISANDRA ALVARES called for patient morning of 05/19. Patient reportedly taken medications, was sitting down, and had a syncopal event and passed out became unresponsive. Unclear if pulse check was performed at the time, however patient quickly regained consciousness but was with nausea/vomiting afterwards. No chest pain, chest pressure, shortness of breath, difficulty breathing. No tachycardia. Hemodynamically stable with normal blood pressure on bedside reassessment Patient does have a history of PE after her last knee replacement many years ago, although this was at the same time as undergoing tamoxifen therapy and with breast cancer. She was not hypoxic at that time Patient and daughter endorse multiple episodes of syncope normally, which are generally precipitated by heat or dehydration. No known cardiac dysrhythmia Given history of syncope above, lack of hypoxia/tachycardia will defer CTA especially given concern for GALEN. Patient given 1 L of fluid with clinical improvement, Zofran with improvement in nausea Transfer to PCU, follow on telemetry. If hypoxia or rising tachycardia develops, would pursue CTA at that time continue DVT prophylaxis for now Updated echo pending for history of syncope (2) Status post total right knee replacement: Plan: - POD#1 - Pain and VTE management per orthopedics (3) History of pulmonary embolism: Plan: - s/p left TKA in 2016 (while also taking tamoxifen). Agree with prophylactic Xarelto. (4) Hx of breast cancer: Plan: 2014 right - radiation 11/03/2021 left - lumpectomy with lymph nodes-left arm restriction (5) Hypertension: Plan: Continue lisinopril 10mg PO HS and metoprolol tartrate 50mg PO BID (6) Hyperlipidemia: Plan: Continue simvastatin 40mg PO HS (7) Diabetes mellitus, type 2: Plan: HbA1C 7.6 - can continue metformin alone on discharge - PCP to consider up titrating dose Continue pharmacy glycemic control during inpatient stay Plan VTE Prophylaxis - per orthopedics, Xarelto 10mg PO daily Diet - T2DM Disposition - per orthopedics, if doing well overnight on telemetry can progress towards discharge Admission and Anticipated Discharge Date Admission Date: May 18, 2022 Subjective Seen at bedside this morning, patient with LISANDRA ALVARES called after a syncopal event. At bedside assessment patient is awake alert, but appears diaphoretic and nauseous. She reports that she has a history of vasovagal syncope, her daughter endorses this and notes that when she gets dehydrated hot and with various other triggers will often pass out and then vomit afterwards. Patient is concerned that her presentation for a prior pulmonary embolism was similar and she never had any shortness of breath or difficulty breathing only syncope after her last knee surgery. She does note at that time she is on tamoxifen and undergoing treatment for breast cancer at the same time as her knee replacement. At time of bedside assessment she denies shortness of breath, difficulty breathing, chest pain, chest pressure. Is nauseous with nonbloody, nonbilious emesis. Review of Systems Review of Systems: All systems reviewed & are unremarkable except as noted in Subjective Physical Exam Physical Exam: General: Alert and oriented to name, place. Diaphoretic, pale and vomiting at time of bedside assessment. Follows commands appropriately HEENT: Atraumatic, normocephalic. Pupils equal and reactive to light and accommodation. Vision and hearing grossly intact Pulm: CTAB A&P. -wheezes, -rales, -rhonchi. Symmetrical chest rise. No increase in work of breathing. No respiratory distress. Cardiac: RRR, -mrg. Radial pulses intact and symmetrical. Abdominal: Nontender, nondistended, soft. BS present. Extremities: Warm, dry. Moves upper extremities equally. Radial pulse and PT pulse intact and symmetrical bilaterally Results & Data Results & Data ([facility] [place]) Vital Signs (Past 12 Hours) Vital Signs Temp Pulse Pulse Resp BP Pulse Ox O2 Del Method 05/19/22 11:41 36.7 C 70 133/78 95 Room Air 05/19/22 11:19 65 14 129/79 93 Room Air 05/19/22 11:00 68 15 135/76 96 Room Air 05/19/22 10:56 36.6 C 72 28 H 149/81 H 95 Room Air 05/19/22 08:01 37 C 82 20 130/74 96 Room Air 05/19/22 05:00 36.6 C 83 18 136/73 95 Room Air PG Care Time/CCT Total # of Minutes Spent Total Time Spent with Patient: Total time spent is greater than 50% in coordination of care (as documented) at patient's floor/unit and/or counseling patient: Coding Level of Care Code 93491 Subseq Hosp Care Lvl 3 Diagnoses Vasovagal syncope R55 Status post total right knee replacement Z96.651 History of pulmonary embolism Z86.711 Hx of breast cancer Z85.3 Hypertension I10 Hyperlipidemia E78.5 Diabetes mellitus, type 2 E11.9
[2022-05-19] MEDS ORDERED: HYDROCODONE/ACETAMOPHEN 5/325MG TAB PO PRN (13:31)
--- NOTE | 2022-05-19 15:31 | XCELERA ---
[id number]
[2022-05-19] MEDS: HYDROCODONE/ACETAMOPHEN 5/325MG TAB PO PRN ×2 (16:15→21:02)
[2022-05-19] MEDS: ONDANSETRON INJ 2 MG/ML 2 ML VIAL IV PRN (16:50)
[2022-05-19] MEDS: SENNA 8.6 MG TAB PO SCH (21:02)
[2022-05-19] MEDS: MAGNESIUM OXIDE 400 MG TAB PO SCH (21:02)
[2022-05-19] MEDS: SIMVASTATIN 40 MG TAB PO SCH (21:02)
[2022-05-19] MEDS: ASPIRIN 81 MG ECTAB PO SCH (21:02)
[2022-05-19] MEDS: lisinopril 10 MG TAB PO SCH (21:03)
--- NOTE | 2022-05-19 22:17 | Electrocardiogram Report ---
Test Reason : Blood Pressure : / mmHG Vent. Rate : 069 BPM Atrial Rate : 069 BPM P-R Int : 160 ms QRS Dur : 074 ms QT Int : 410 ms P-R-T Axes : 055 041 046 degrees QTc Int : 439 ms Normal sinus rhythm Normal ECG When compared with ECG of 05-APR-2020 13:30, Premature atrial complexes are no longer Present Confirmed by Luis Enrique Gaines ([id number]) on 05/19/2022 10:17:12 PM Referred By: Jayce Rowe Confirmed By:Luis Enrique Gaines
[2022-05-20] MEDS: HYDROCODONE/ACETAMOPHEN 5/325MG TAB PO PRN ×5 (01:56→20:35)
[2022-05-20 06:30] LABS: Basophils # (auto) 0.07 K/uL (0-0.2); Basophils % (auto) 0.5 %; Eosinophils # (auto) 0.62 K/uL (0-0.50); Eosinophils % (auto) 4.6 %; Hematocrit (blood only) 27.5 % (34.1-44.9); Immature Granulocytes # (auto) 0.07 K/uL (0.00-0.02); Immature Granulocytes % (auto) 0.5 %; Lymphocytes # (auto) 2.22 K/uL (1.2-3.4); Lymphocytes % (auto) 16.3 %; Mean Corpuscular Hemoglobin 30.2 pg (25.0-34.0); Mean Corpuscular Hgb Conc 32.7 g/dL (32.0-36.0); Mean Corpuscular Volume 92.3 fL (80.0-100.0); Mean Platelet Volume 12.3 fL (9.4-12.3); Monocytes # (auto) 1.45 K/uL (0.24-0.82); Monocytes % (auto) 10.7 %; Neutrophils # (auto) 9.17 K/uL (1.4-6.5); Neutrophils % (auto) 67.4 %; Platelet Count 266 K/uL (130-400); RDW Coefficient of Variation 12.6 % (11.5-14.5); RDW Standard Deviation 42.2 fL (36.4-46.3); Red Blood Count 2.98 M/uL (3.93-5.22)
--- NOTE | 2022-05-20 06:51 | Orthopedic Progress Note ---
Date of Service May 20, 2022 Assessment & Plan (1) Primary osteoarthritis of right knee: Plan: POD 2 s/p Right TKA PT/OT. Progressing well DVT prophylaxis - Rivaroxaban daily, SCD's, BINH's Pain management as written. DC planning - OPPT upon dc., will d/c hemovac this am. We will perform physical therapy this morning if no further syncopal episodes or feeling of lightheadedness, she can be discharged home later today Admission and Anticipated Discharge Date Admission Date: May 19, 2022 Subjective POD #2 s/p Right TKA no further syncopal episodes yesterday afternoon or overnight Review of Systems Review of Systems: All systems reviewed & are unremarkable except as noted in HPI & below Constitutional: no fever and no chills Respiratory: no cough and no dyspnea Cardiovascular: no chest pain, no dyspnea and no orthopnea Gastrointestinal: no abdominal pain, no nausea and no vomiting Physical Exam Physical Exam: Vital Signs Temp 36.8 C 05/20/22 02:51 Pulse 80 05/20/22 02:51 Resp 20 05/20/22 02:51 BP 135/69 05/20/22 02:51 Pulse Ox 93 05/20/22 02:51 O2 Del Method 05/20/22 02:51 Intake & Output 05/19/22 05/19/22 05/20/22 06:59 18:59 06:59 Intake Total 1523.334 / 3123.33 4 1000 / 1350 350 / 1350 Output Total 725 / 730 850 / 895 45 / 895 Balance 798.334 / 2393.334 150 / 455 305 / 455 Weight 104.9 kg Intake: IV 1523.334 / 1623.33 4 1000 / 1000 Sodium Chlorid e 0.9% 1000ML 1, 1523.334 / 1523.33 4 1000 / 1000 000 ml @ 999 m ls/hr IV .Q1H1M ONE Rx#:[id number] Oral 350 / 350 Output: Urine 725 / 725 450 / 450 Drain Output 400 / 445 45 / 445 Right Knee Hem ovac 400 / 445 45 / 445 # Bowel Movement s 0 / 0 Other: Other Intake Bibi rce sips # Unmeasured Voi ds 2 1 Constitutional: WD/WN, vitals as above no acute distress Musculoskeletal: Right leg: NVDI, calf SNT, negative magda sign. DP palpable, able to wiggle toes/ankle movement without difficulty. dressing clean dry and intact. Results & Data ([facility]) Vital Signs (Past 12 Hours) Vital Signs Temp Pulse Pulse Resp BP Pulse Ox O2 Del Method 05/20/22 02:51 36.8 C 80 20 135/69 93 Room Air 05/20/22 00:00 70 05/19/22 22:41 36.5 C 69 20 119/69 97 Room Air 05/19/22 19:11 36.4 C L 86 20 146/75 H 98 Room Air
[2022-05-20 07:13] LABS: BUN Creatinine Ratio 16.2 (10-20); Calcium 8.4 mg/dl (8.5-10.1); Creatinine Clr Calc Pharmacy 56.8 ml/min; Est GFR (African American) 59.7 ml/min; Est GFR (Non-African American) 51.5 ml/min; Magnesium 1.9 mg/dl (1.7-2.4); Potassium 4.5 mmol/L (3.5-5.1)
[2022-05-20] MEDS: MULTIVITAMIN TAB PO SCH (07:35)
[2022-05-20] MEDS: METOPROLOL TARTRATE 50 MG TAB PO SCH (07:35)
[2022-05-20] MEDS: DOCUSATE SODIUM 100 MG CAP PO SCH ×2 (07:35→20:38)
[2022-05-20] MEDS: RIVAROXABAN 10 MG TABLET PO SCH (08:22)
[2022-05-20] MEDS: metFORMIN HCL 500 MG TAB PO SCH ×2 (08:22→16:33)
[2022-05-20] MEDS: INSULIN ASPART PER UNIT SC SCH ×4 (08:25→20:34)
[2022-05-20] MEDS ORDERED: SODIUM CHLORIDE 0.9% 1000ML 1,000 ML IV SCH (09:45)
[2022-05-20] MEDS: ONDANSETRON INJ 2 MG/ML 2 ML VIAL IV PRN (09:48)
--- NOTE | 2022-05-20 13:06 | Hospitalist Progress Note ---
Date of Service May 20, 2022 Assessment & Plan (1) Vasovagal syncope: Plan: LISANDRA ALVARES called for patient morning of 05/19. Patient reportedly taken medications, was sitting down, and had a syncopal event and passed out became unresponsive. Unclear if pulse check was performed at the time, however patient quickly regained consciousness but was with nausea/vomiting afterwards. No chest pain, chest pressure, shortness of breath, difficulty breathing. No tachycardia. Hemodynamically stable with normal blood pressure on bedside reassessment Patient does have a history of PE after her last knee replacement many years ago, although this was at the same time as undergoing tamoxifen therapy and with breast cancer. She was not hypoxic at that time Patient and daughter endorse multiple episodes of syncope normally, which are generally precipitated by heat or dehydration. No known cardiac dysrhythmia - TTE without significant valvular pathology despite murmur on exam Stop lisinopril, reduce metoprolol from 50mg PO BID to 25mg PO BID. Additional 1L NSS 80ml/hr today. (2) Status post total right knee replacement: Plan: - POD#2 - Pain and VTE management per orthopedics (3) History of pulmonary embolism: Plan: - s/p left TKA in 2016 (while also taking tamoxifen). Agree with prophylactic Xarelto. (4) Hx of breast cancer: Plan: 2014 right - radiation 11/03/2021 left - lumpectomy with lymph nodes-left arm restriction (5) Hypertension: Plan: As above. Stop lisinopril and reduce metoprolol tartrate to 25mg PO BID (6) Hyperlipidemia: Plan: Continue simvastatin 40mg PO HS (7) Diabetes mellitus, type 2: Plan: HbA1C 7.6 - can continue metformin alone on discharge - PCP to consider up titrating dose Continue pharmacy glycemic control during inpatient stay Plan VTE Prophylaxis - per orthopedics, Xarelto 10mg PO daily Diet - T2DM Disposition - recommended inpatient stay given she is still significantly vasovagal [facility] Admission and Anticipated Discharge Date Admission Date: May 19, 2022 Subjective Dropped her blood pressure with physical therapy today. [place] dizzy and lightheaded. She was given lisinopril and her usual dose of metoprolol last night. Feeling nauseous today despite oxycodone switched to norco. Discussed switching to tramadol but she wishes to stay on [place] for now as tolerated it well last night. No abdominal pain, heartburn or acid taste in her mouth. Review of Systems Review of Systems: All systems reviewed & are unremarkable except as noted in Subjective Physical Exam Constitutional: WD/WN, vitals as above Neck: trachea midline, no thyromegaly Respiratory: normal respiratory effort, lungs clear to auscultation Cardiovascular: Rate/Rhythm: regular rate and regular rhythm Heart Sounds: + murmur Gastrointestinal (Abdomen): normal bowel sounds, soft, nontender, no hepatosplenomegaly Musculoskeletal: no cyanosis or clubbing, extremities motor strength 5/5 Skin: no rashes, warm and dry Psychiatric: A+Ox3, euthymic affect Results & Data Results & Data ([facility]) Vital Signs (Past 12 Hours) Vital Signs Temp Pulse Pulse Resp BP Pulse Ox O2 Del Method 05/20/22 12:04 36.6 C 66 16 113/70 96 Room Air 05/20/22 09:53 69 123/59 L 05/20/22 07:33 36.9 C 82 146/74 H 93 Room Air 05/20/22 06:07 76 05/20/22 02:51 36.8 C 80 20 135/69 93 Room Air PG Care Time/CCT Total # of Minutes Spent Total Time Spent with Patient: Total time spent is greater than 50% in coordination of care (as documented) at patient's floor/unit and/or counseling patient: Coding Level of Care Code 01105 Subseq Hosp Care Lvl 2 Diagnoses Vasovagal syncope R55 Status post total right knee replacement Z96.651 History of pulmonary embolism Z86.711 Hx of breast cancer Z85.3 Hypertension I10 Hyperlipidemia E78.5 Diabetes mellitus, type 2 E11.9
[2022-05-20] MEDS: SENNA 8.6 MG TAB PO SCH (20:34)
[2022-05-20] MEDS: ASPIRIN 81 MG ECTAB PO SCH (20:35)
[2022-05-20] MEDS: SIMVASTATIN 40 MG TAB PO SCH (20:35)
[2022-05-20] MEDS: MAGNESIUM OXIDE 400 MG TAB PO SCH (20:35)
[2022-05-20] MEDS ORDERED: METOPROLOL TARTRATE 25 MG TAB PO SCH (21:00)
[2022-05-21] MEDS: HYDROCODONE/ACETAMOPHEN 5/325MG TAB PO PRN ×2 (00:35→05:06)
[2022-05-21] MEDS: ONDANSETRON INJ 2 MG/ML 2 ML VIAL IV PRN (05:07)
[2022-05-21] MEDS ORDERED: oxyCODONE HCL IR 5 MG TAB (IMMEDIATE RELEASE) PO STA (05:46)
[2022-05-21] MEDS ORDERED: HYDROmorphone INJ 0.5 MG/0.5 ML SYR IM ONE (06:17)
--- NOTE | 2022-05-21 06:44 | Orthopedic Progress Note ---
Date of Service May 21, 2022 Assessment & Plan (1) Primary osteoarthritis of right knee: Plan: POD 3 s/p Right TKA PT/OT. DVT prophylaxis - Rivaroxaban daily, SCD's, BINH's Pain management as written- currently using [place] Patient states that she was getting regular bath this morning and as she was getting ready to walk felt lightheaded and dizzy, nauseous. She is currently resting in bed and states that she is feeling a bit better, this episode happened about 90 minutes ago. EKG has been ordered. We will await medical assessment. Unclear on etiology, however it does seem related to when she puts pressure down on her leg. She is unable to take oxycodone, is currently using [place] which she states she used after her left knee replacement and had no issues with it. We will continue to observe Admission and Anticipated Discharge Date Admission Date: May 19, 2022 Subjective POD #3 s/p Right TKA Patient states she did relatively well yesterday afternoon, however this morning was getting up to go to the bathroom and had a near syncopal episode again. She denies hitting her head or falling, she did feel a bit nauseous when this happened but is denying chest pain or shortness of breath Physical Exam Physical Exam: Vital Signs Temp 36.6 C 05/21/22 05:24 Pulse 73 05/21/22 05:24 Resp 16 05/21/22 05:24 BP 98/60 L 05/21/22 05:24 Pulse Ox 94 05/21/22 05:24 O2 Del Method 05/21/22 05:24 Intake & Output 05/20/22 05/20/22 05/21/22 06:59 18:59 06:59 Intake Total 350 / 1350 860 / 2260 1400 / 2260 Output Total 45 / 895 Balance 305 / 455 860 / 2260 1400 / 2260 Weight 104.9 kg 105.5 kg Intake: IV 1000 / 1000 Sodium Chlorid e 0.9% 1000ML 1, 1000 / 1000 000 ml @ 80 ml s/hr IV .[id number] [facility] Rx#:[id number] 93 Oral 350 / 350 860 / 1260 400 / 1260 Output: Drain Output 45 / 445 Right Knee Hem ovac 45 / 445 # Bowel Movement s 0 / 0 Other: Other Intake Bibi rce sips # Unmeasured Voi ds 1 2 1 Weight Measureme nt Method Built in [facility] Musculoskeletal: right knee: NVDI, calf SNT, negative magda sign. DP palpable, able to wiggle toes/ankle movement without difficulty. CARL dressing clean dry and intact. expected post-operative bruising noted. Results & Data ([facility]) Vital Signs (Past 12 Hours) Vital Signs Temp Pulse Pulse Pulse Resp BP Pulse Ox 05/21/22 05:24 36.6 C 73 16 98/60 L 94 05/21/22 05:05 82 16 143/75 H 96 05/21/22 03:28 36.9 C 89 16 146/71 H 96 05/20/22 23:21 79 05/20/22 23:19 36.7 C 79 18 116/68 95 05/20/22 20:33 85 115/67 05/20/22 19:26 36.9 C 79 18 113/65 98 O2 Del Method 05/21/22 05:24 Room Air 05/21/22 05:05 Room Air 05/21/22 03:28 Room Air 05/20/22 23:21 05/20/22 23:19 Room Air 05/20/22 20:33 05/20/22 19:26 Room Air
--- NOTE | 2022-05-21 07:19 | Electrocardiogram Report ---
Test Reason : Blood Pressure : / mmHG Vent. Rate : 079 BPM Atrial Rate : 079 BPM P-R Int : 162 ms QRS Dur : 072 ms QT Int : 378 ms P-R-T Axes : 067 031 043 degrees QTc Int : 433 ms Normal sinus rhythm Normal ECG When compared with ECG of 19-MAY-2022 11:01, No significant change was found Confirmed by Miko Henriquez ([id number]) on 05/21/2022 7:19:19 AM Referred By: Jayce Rowe Confirmed By:Hilario Henriquez
[2022-05-21] MEDS ORDERED: FAMOTIDINE 20 MG in SYRINGE 3 ML IV ONE (08:04)
[2022-05-21] MEDS ORDERED: PANTOprazole 40 MG TAB PO STA (08:04)
[2022-05-21] MEDS ORDERED: ALUMINUM/MAGNESIUM SUSP 30 ML UDC PO STA (08:04)
[2022-05-21] MEDS: RIVAROXABAN 10 MG TABLET PO SCH (08:42)
[2022-05-21] MEDS: MULTIVITAMIN TAB PO SCH (08:42)
[2022-05-21] MEDS: metFORMIN HCL 500 MG TAB PO SCH (08:42)
[2022-05-21] MEDS: INSULIN ASPART PER UNIT SC SCH ×4 (08:50→21:25)
[2022-05-21] MEDS: DOCUSATE SODIUM 100 MG CAP PO SCH ×2 (08:51→21:30)
[2022-05-21 08:56] LABS: Hematocrit (blood only) 26.6 % (34.1-44.9); Hemoglobin 8.7 g/dl (12.0-16.0); Mean Corpuscular Hgb Conc 32.7 g/dL (32.0-36.0); Mean Corpuscular Volume 91.7 fL (80.0-100.0); Platelet Count 261 K/uL (130-400); RDW Coefficient of Variation 12.7 % (11.5-14.5); RDW Standard Deviation 42.5 fL (36.4-46.3); White Blood Count 15.29 K/ul (4.8-10.8)
[2022-05-21 09:14] LABS: BUN Creatinine Ratio 13.3 (10-20); Calcium 8.6 mg/dl (8.5-10.1); Est GFR (African American) 64.9 ml/min; Potassium 4.5 mmol/L (3.5-5.1)
[2022-05-21] MEDS ORDERED: HYDROmorphone HCL 2 MG TAB PO PRN (10:04)
[2022-05-21] MEDS ORDERED: ALUMINUM/MAGNESIUM SUSP 30 ML UDC PO PRN (11:13)
[2022-05-21] MEDS: CeleBREX 200 MG CAP PO SCH (11:13)
[2022-05-21] MEDS ORDERED: ONDANSETRON INJ 2 MG/ML 2 ML VIAL IV PRN (11:15)
[2022-05-21] MEDS ORDERED: OPTIRAY 300 500mL IV ONE (12:09)
--- NOTE | 2022-05-21 12:34 | CT Scan Report ---
CT angio chest PE protocol CT DOSE: 684.54 mGy.cm HISTORY: 76 years-old Female with PE. Acute shortness of breath TECHNIQUE: Multiple CTA images of the chest were obtained after the intravenous administration of Opt iray. Coronal and sagittal MIPS were obtained from the axial data set and were submitted for review. All measurements were obtained according to NASCET criteria. A dose lowering technique was utilized adhering to the principles of ALARA. COMPARISON: CTA chest 06/14/2015 FINDINGS: CTA: Mild cardiomegaly. No pericardial effusion. Mild coronary artery calcifications. 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 No thoracic aortic aneurysm or diss ection. Unremarkable pulmonary artery. No pulmonary emboli are identified. CT CHEST: Unremarkable thyroid. No lymphadenopathy identified. No pneumothorax, pleural effusion or overt pulmo nary edema. Subsegmental dependent predominant bilateral atelectasis. 3 mm subpleural solid nodule of the superior segment left lower lobe on image 221 appears new from the prior study however is of low clinical suspicion. There are no suspicious pulmonary nodules or masses identified. Central airways are patent. Hepatic steatosis with hepatomegaly. Indeterminate 9 mm hyperdense focus of the right hepatic lobe, i mage 23. Spiculated 2.2 x 1.6 x 3.5 cm mass within the superior medial quadrant right breast with adj acent coarse calcifications. A seroma was noted within this area on the prior study. Degenerative sofia nges of the spine and shoulders. No acute fracture or destructive bone lesion identified. IMPRESSION: 1. Cardiomegaly without pulmonary emboli identified. 2. No pleural effusion or airspace consolidation typical for pneumonia. 3. 3.5 cm spiculated mass of the right breast may represent an area of scarring. Correlation with merari or mammogram recommended. 4. Hepatic steatosis. ACT 112: Negative or not required by law. The above report was generated using voice recognition software. It may contain grammatical, syntax o r spelling errors. Electronically signed by: Alexis Duckworth M.D. 05/21/2022 12:32 PM
[2022-05-21] MEDS: HYDROmorphone HCL 2 MG TAB PO PRN (13:06)
[2022-05-21 13:57] LABS: Basophils # (auto) 0.06 K/uL (0-0.2); Basophils % (auto) 0.4 %; Eosinophils # (auto) 0.34 K/uL (0-0.50); Eosinophils % (auto) 2.2 %; Immature Granulocytes # (auto) 0.09 K/uL (0.00-0.02); Immature Granulocytes % (auto) 0.6 %; Lymphocytes # (auto) 1.52 K/uL (1.2-3.4); Monocytes # (auto) 1.49 K/uL (0.24-0.82); Monocytes % (auto) 9.8 %; Neutrophils # (auto) 11.68 K/uL (1.4-6.5)
[2022-05-21] MEDS: ACETAMINOPHEN 500 MG TAB PO SCH ×2 (14:08→21:24)
--- NOTE | 2022-05-21 19:08 | Hospitalist Progress Note ---
Date of Service May 21, 2022 Assessment & Plan (1) Vasovagal syncope: Plan: LISANDRA ALVARES called for patient morning of 05/19. Patient reportedly taken medications, was sitting down, and had a syncopal event and passed out became unresponsive. Unclear if pulse check was performed at the time, however patient quickly regained consciousness but was with nausea/vomiting afterwards. - No chest pain, chest pressure, shortness of breath, difficulty breathing. No tachycardia. Hemodynamically stable with normal blood pressure on bedside reassessment - Patient does have a history of PE after her last knee replacement many years ago, although this was at the same time as undergoing tamoxifen therapy and with breast cancer. She was not hypoxic at that time - Patient and daughter endorse multiple episodes of syncope normally, which are generally precipitated by heat or dehydration. No known cardiac dysrhythmia. No arrhythmia on telemetry. - TTE without significant valvular pathology despite murmur on exam - Stopped lisinopril, stop metoprolol today (reduced dose still causing hypotension) - CT for PE negative - will workup for infection with UA (no infection on CXR). Continue to trend WBC as up trending neutrophilia - lower suspicion related to pain medication as does not appear to correlate but may be more related to her pain - TSH and random cortisol normal (2) Status post total right knee replacement: Plan: - POD#3 - Pain and VTE management per orthopedics (3) History of pulmonary embolism: Plan: - s/p left TKA in 2016 (while also taking tamoxifen). Agree with prophylactic Xarelto. (4) Hx of breast cancer: Plan: 2014 right - radiation 11/03/2021 left - lumpectomy with lymph nodes-left arm restriction (5) Hypertension: Plan: As above. Stop lisinopril and metoprolol (6) Hyperlipidemia: Plan: Continue simvastatin 40mg PO HS (7) Diabetes mellitus, type 2: Plan: HbA1C 7.6 - can continue metformin alone on discharge - PCP to consider up titrating dose Continue pharmacy glycemic control during inpatient stay Plan VTE Prophylaxis - per orthopedics, Xarelto 10mg PO daily Diet - T2DM Disposition - recommended inpatient stay given she is still significantly vasovagal Admission and Anticipated Discharge Date Admission Date: May 19, 2022 Subjective Patient reports ongoing nausea and hypotension despite stopping lisinopril and reduction of metoprolol. Does not appear to be related pain medication. Also having heartburn however her dizziness and nausea is on sitting up rather than sitting down. She is not short of breath or tachycardic but reports feeling exactly same with her previous pulmonary emboli. No urinary or upper respiratory symptoms. Review of Systems Review of Systems: All systems reviewed & are unremarkable except as noted in Subjective Physical Exam Constitutional: WD/WN, vitals as above ENMT: external ear and nose normal, oropharynx normal Neck: trachea midline, no thyromegaly Respiratory: normal respiratory effort, lungs clear to auscultation Cardiovascular: Rate/Rhythm: regular rate and regular rhythm Heart Sounds: + murmur Extremities: normal capillary refill; no calf tenderness and no pedal edema Gastrointestinal (Abdomen): normal bowel sounds, soft, nontender, no hepatosplenomegaly Musculoskeletal: no cyanosis or clubbing, extremities motor strength 5/5 Skin: no rashes, warm and dry Neurologic: moves all extremities and awake; not confused Psychiatric: A+Ox3, euthymic affect Results & Data Results & Data ([facility]) Vital Signs (Past 12 Hours) Vital Signs Temp Pulse Pulse Pulse Resp BP Pulse Ox 05/21/22 14:29 89 05/21/22 15:22 36.6 C 80 16 134/74 97 05/21/22 11:36 36.8 C 93 H 18 159/75 H 95 05/21/22 07:07 36.5 C 84 16 153/72 H 96 O2 Del Method 05/21/22 14:29 05/21/22 15:22 Room Air 05/21/22 11:36 Room Air 05/21/22 07:07 Room Air PG Care Time/CCT Total # of Minutes Spent Total Time Spent with Patient: Total time spent is greater than 50% in coordination of care (as documented) at patient's floor/unit and/or counseling patient: Coding Level of Care Code 17268 Subseq Hosp Care Lvl 2 Diagnoses Vasovagal syncope R55 Status post total right knee replacement Z96.651 History of pulmonary embolism Z86.711 Hx of breast cancer Z85.3 Hypertension I10 Hyperlipidemia E78.5 Diabetes mellitus, type 2 E11.9
[2022-05-21 19:42] LABS: Appearance Urine Clear (Clear); Bilirubin Urine Negative (Negative); Blood Urine Negative (Negative); Color Urine Yellow; Glucose Urine UA Negative (Negative); Ketones Urine Negative (Negative); Leukocyte Esterase Urine Negative (Negative); Nitrite Urine Negative (Negative); Protein Urine Negative (Negative); Urobilinogen Urine Negative (Negative); pH Urine 5.5 (4.5-7.5)
[2022-05-21] MEDS: MAGNESIUM OXIDE 400 MG TAB PO SCH (21:24)
[2022-05-21] MEDS: SIMVASTATIN 40 MG TAB PO SCH (21:24)
[2022-05-21] MEDS: SENNA 8.6 MG TAB PO SCH (21:24)
[2022-05-21] MEDS: ASPIRIN 81 MG ECTAB PO SCH (21:24)
[2022-05-22] MEDS: HYDROmorphone HCL 2 MG TAB PO PRN ×5 (02:04→22:42)
[2022-05-22] MEDS: ACETAMINOPHEN 500 MG TAB PO SCH ×3 (06:23→20:24)
--- NOTE | 2022-05-22 07:09 | Orthopedic Progress Note ---
Date of Service May 22, 2022 Assessment & Plan (1) Primary osteoarthritis of right knee: Plan: POD =4 s/p Right TKA PT/OT. DVT prophylaxis - Rivaroxaban daily, SCD's, BINH's Pain management as written-seems to be better with p.o. Dilaudid. Thus far this morning patient has had no recurrent vasovagal episodes. Has gotten up to bedside commode and has not had issues putting pressure down her leg as she was yesterday. We will see how she does throughout the day today. If she remains stable we will plan on discharge home. Admission and Anticipated Discharge Date Admission Date: May 19, 2022 Subjective Patient is postop day #4 right total knee. She is so far overnight and this morning has felt well. Has not had any vasovagal episodes since yesterday. Denies lightheadedness, shortness of breath, chest pain, nausea/vomiting. Review of Systems Review of Systems: All systems reviewed & are unremarkable except as noted in Subjective Physical Exam Physical Exam: Right knee: Dressing is clean, dry and intact. Jing in place with small amount of drainage and window. No surrounding erythema. Mild to moderate amount of swelling. No calf tenderness. Distally neurovascular status and sensation intact. Constitutional: well developed and well nourished; no acute distress Results & Data ([facility]) Vital Signs (Past 12 Hours) Vital Signs Temp Pulse Pulse Pulse Resp BP Pulse Ox 05/22/22 03:01 36.4 C L 85 20 146/77 H 97 05/21/22 23:17 80 05/21/22 22:48 36.6 C 88 16 155/78 H 98 05/21/22 19:38 37.0 C 87 18 137/72 94 O2 Del Method 05/22/22 03:01 Room Air 05/21/22 23:17 05/21/22 22:48 Room Air 05/21/22 19:38 Room Air
[2022-05-22] MEDS: INSULIN ASPART PER UNIT SC SCH ×4 (08:26→20:20)
[2022-05-22] MEDS: RIVAROXABAN 10 MG TABLET PO SCH (08:28)
[2022-05-22] MEDS: MULTIVITAMIN TAB PO SCH (08:28)
[2022-05-22] MEDS: PANTOprazole 40 MG TAB PO SCH (08:28)
[2022-05-22] MEDS: CeleBREX 200 MG CAP PO SCH (08:28)
[2022-05-22] MEDS: DOCUSATE SODIUM 100 MG CAP PO SCH ×2 (08:32→20:30)
[2022-05-22] MEDS ORDERED: HYDROmorphone HCL 2 MG TAB PO PRN (11:23)
[2022-05-22] MEDS: SIMVASTATIN 40 MG TAB PO SCH (20:23)
[2022-05-22] MEDS: SENNA 8.6 MG TAB PO SCH (20:24)
[2022-05-22] MEDS: ASPIRIN 81 MG ECTAB PO SCH (20:24)
[2022-05-22] MEDS: MAGNESIUM OXIDE 400 MG TAB PO SCH (20:24)
--- NOTE | 2022-05-22 20:24 | Hospitalist Progress Note ---
Date of Service May 22, 2022 Assessment & Plan (1) Vasovagal syncope: Plan: LISANDRA ALVARES called for patient morning of 05/19. Patient reportedly taken medications, was sitting down, and had a syncopal event and passed out became unresponsive. Unclear if pulse check was performed at the time, however patient quickly regained consciousness but was with nausea/vomiting afterwards. - No chest pain, chest pressure, shortness of breath, difficulty breathing. No tachycardia. Hemodynamically stable with normal blood pressure on bedside reassessment - Patient does have a history of PE after her last knee replacement many years ago, although this was at the same time as undergoing tamoxifen therapy and with breast cancer. She was not hypoxic at that time - Patient and daughter endorse multiple episodes of syncope normally, which are generally precipitated by heat or dehydration. No known cardiac dysrhythmia. No arrhythmia on telemetry. - TTE without significant valvular pathology despite murmur on exam - CT for PE negative - UA negative for infection, CT negative for infection - TSH and random cortisol normal - Stopped lisinopril and still vasovagal with pain, therefore reduced then stopped metoprolol. Next plan would be to start midodrine however given her current blood pressure would be reluctant to start this. Really the management is better pain control and will increase the frequency of her hydromorphone to q4h. Vasovagal episodes appear very related to her pain rather than her pain medication. - discussed with orthopedics (2) Status post total right knee replacement: Plan: - POD#4 - Pain and VTE management per orthopedics (3) History of pulmonary embolism: Plan: - s/p left TKA in 2016 (while also taking tamoxifen). Agree with prophylactic Xarelto. (4) Hx of breast cancer: Plan: 2014 right - radiation 11/03/2021 left - lumpectomy with lymph nodes-left arm restriction (5) Hypertension: Plan: As above. Stop lisinopril and metoprolol (6) Hyperlipidemia: Plan: Continue simvastatin 40mg PO HS (7) Diabetes mellitus, type 2: Plan: HbA1C 7.6 - can continue metformin alone on discharge - PCP to consider up titrating dose Continue pharmacy glycemic control during inpatient stay Plan VTE Prophylaxis - per orthopedics, Xarelto 10mg PO daily Diet - T2DM Disposition - recommended inpatient stay given she is still significantly vasovagal and planning on dischargin home alone Admission and Anticipated Discharge Date Admission Date: May 19, 2022 Subjective Patient doing much better this morning. However whenever she gets in much worse pain she has a large vagal response causing her blood pressure to drop and she feels nauseous and faint. She has a longstanding history of vasovagal syncope and it is significant worse when she has pain. Although she has surprisingly tolerated other surgeries in the past. Review of Systems Review of Systems: All systems reviewed & are unremarkable except as noted in Subjective Physical Exam Constitutional: WD/WN, vitals as above Eyes: + anicteric sclerae; normal pupil size ENMT: external ear and nose normal, oropharynx normal Respiratory: normal respiratory effort, lungs clear to auscultation Cardiovascular: Rate/Rhythm: regular rate and regular rhythm Heart Sounds: + murmur Extremities: normal capillary refill; no calf tenderness and no pedal edema Gastrointestinal (Abdomen): normal bowel sounds, soft, nontender, no hepatosplenomegaly Musculoskeletal: no cyanosis or clubbing, extremities motor strength 5/5 Skin: no rashes, warm and dry Neurologic: moves all extremities and awake; not confused Psychiatric: A+Ox3, euthymic affect Results & Data Results & Data ([facility]) Vital Signs (Past 12 Hours) Vital Signs Temp Pulse Pulse Pulse Resp BP Pulse Ox 05/22/22 19:33 36.9 C 91 H 18 153/76 H 97 05/22/22 16:24 37 C 84 16 160/83 H 96 05/22/22 15:08 96 H 05/22/22 10:44 83 19 127/73 95 05/22/22 09:12 36.7 C 88 85 16 163/78 H 96 O2 Del Method 05/22/22 19:33 Room Air 05/22/22 16:24 Room Air 05/22/22 15:08 05/22/22 10:44 Room Air 05/22/22 09:12 PG Care Time/CCT Total # of Minutes Spent Total Time Spent with Patient: Total time spent is greater than 50% in coordination of care (as documented) at patient's floor/unit and/or counseling patient: Coding Level of Care Code 09321 Subseq Hosp Care Lvl 2 Diagnoses Vasovagal syncope R55 Status post total right knee replacement Z96.651 History of pulmonary embolism Z86.711 Hx of breast cancer Z85.3 Hypertension I10 Hyperlipidemia E78.5 Diabetes mellitus, type 2 E11.9
[2022-05-23] MEDS: HYDROmorphone HCL 2 MG TAB PO PRN ×3 (02:46→11:40)
[2022-05-23] MEDS: ACETAMINOPHEN 500 MG TAB PO SCH ×2 (06:40→14:51)
[2022-05-23 07:14] LABS: Basophils % (auto) 0.8 %; Eosinophils # (auto) 0.87 K/uL (0-0.50); Eosinophils % (auto) 7.2 %; Hematocrit (blood only) 27.7 % (34.1-44.9); Hemoglobin 9.1 g/dl (12.0-16.0); Immature Granulocytes # (auto) 0.07 K/uL (0.00-0.02); Immature Granulocytes % (auto) 0.6 %; Lymphocytes # (auto) 2.26 K/uL (1.2-3.4); Lymphocytes % (auto) 18.8 %; Mean Corpuscular Hgb Conc 32.9 g/dL (32.0-36.0); Mean Corpuscular Volume 91.4 fL (80.0-100.0); Mean Platelet Volume 11.4 fL (9.4-12.3); Monocytes # (auto) 1.07 K/uL (0.24-0.82); Monocytes % (auto) 8.9 %; Neutrophils # (auto) 7.67 K/uL (1.4-6.5); Neutrophils % (auto) 63.7 %; Platelet Count 366 K/uL (130-400); RDW Coefficient of Variation 12.3 % (11.5-14.5); RDW Standard Deviation 41.5 fL (36.4-46.3); Red Blood Count 3.03 M/uL (3.93-5.22); White Blood Count 12.04 K/ul (4.8-10.8)
[2022-05-23 07:51] LABS: BUN Creatinine Ratio 16.3 (10-20); Creatinine Clr Calc Pharmacy 55.9 ml/min; Est GFR (African American) 60.4 ml/min; Est GFR (Non-African American) 52.1 ml/min; Potassium 4.5 mmol/L (3.5-5.1)
[2022-05-23] MEDS: MULTIVITAMIN TAB PO SCH (08:00)
[2022-05-23] MEDS: RIVAROXABAN 10 MG TABLET PO SCH (08:00)
[2022-05-23] MEDS: CeleBREX 200 MG CAP PO SCH (08:00)
[2022-05-23] MEDS: INSULIN ASPART PER UNIT SC SCH ×2 (08:00→11:46)
[2022-05-23] MEDS: PANTOprazole 40 MG TAB PO SCH (08:00)
[2022-05-23] MEDS: DOCUSATE SODIUM 100 MG CAP PO SCH (08:03)
--- NOTE | 2022-05-23 09:03 | Hospitalist Progress Note ---
Date of Service May 23, 2022 Assessment & Plan (1) Vasovagal syncope: Plan: 76-year-old female past medical history significant for type 2 diabetes, hypertension, hyperlipidemia, pulmonary embolism was admitted for right TKA, and hospitalist service consulted for vasovagal syncope. Vasovagal syncope: 05/19LISANDRA ALVARES was called after patient had a syncopal event, passed out, and became unresponsive. Patient quickly regained consciousness with nausea and vomiting afterwards. - No chest pain, chest pressure, shortness of breath, difficulty breathing. No tachycardia. Hemodynamically stable with normal blood pressure on bedside reassessment. - Patient has a history of PE however did not have hypoxia and symptoms were in the setting of significant pain. - CT for PE negative. - No arrhythmia noted on telemetry. - TTE without significant valvular pathology despite murmur on exam. - UA negative for infection, CT negative for pneumonia. - TSH and random cortisol normal. - Patient's lisinopril and metoprolol were held due to her vasovagal events, with improvement in her symptoms. These meds will continue to be held on discharge until evaluated by her primary care provider. - Her symptoms have also improved with adequate control of pain. Patient will b e on p.o. Dilaudid as needed on discharge. -Stable from medical perspective for discharge. Medicine will sign off at this time. Thank you for the consult and please contact with any further concerns. (2) Status post total right knee replacement: Plan: - POD#4. - Pain and VTE management per orthopedics. (3) History of pulmonary embolism: Plan: - s/p left TKA in 2015 (while also taking tamoxifen). Agree with continuing prophylactic Xarelto. (4) Hx of breast cancer: Plan: - History of breast cancer, status post radiation in 2014 and lumpectomy/lymph node removal in 2021. (5) Hypertension: Plan: - Patient's blood pressure 148/71 this morning. - Continue to hold lisinopril and metoprolol until evaluated by primary care provider given vasovagal episodes here in-house. (6) Hyperlipidemia: Plan: - Continue simvastatin 40mg PO HS. (7) Diabetes mellitus, type 2: Plan: A1c 7.6 on last check. Continue home metformin with evaluation by PCP. Plan VTE Prophylaxis - Xarelto 10 mg daily Disposition - as patient's symptoms are resolved patient appears to be medically stable for discharge today. Recommended good pain control, slow sit to stand, good hydration, and holding lisinopril and metoprolol until evaluated by PCP. Admission and Anticipated Discharge Date Admission Date: May 19, 2022 Subjective This morning patient was seen after being evaluated by physical therapy. Patient reports that while her knee is painful with physical therapy, it is not so painful such that she feels like she is going to pass out. She did not have any presyncopal or syncopal sensations this morning while doing physical therapy, nor did she have any shortness of breath, chest pain, nausea, dizziness. Review of Systems Constitutional: no fever and no chills Respiratory: no cough and no dyspnea Cardiovascular: no chest pain and no palpitations Gastrointestinal: no abdominal pain, no nausea and no vomiting Physical Exam Constitutional: WD/WN, vitals as above Respiratory: normal respiratory effort, lungs clear to auscultation Cardiovascular: RRR, no murmur, no edema Gastrointestinal (Abdomen): normal bowel sounds, soft, nontender, no hepatosplenomegaly Musculoskeletal: Moves all limbs equally and without any deficits Skin: no rashes, warm and dry Psychiatric: A+Ox3, euthymic affect Results & Data Results & Data ([facility]) Vital Signs (Past 12 Hours) Vital Signs Temp Pulse Pulse Pulse Resp BP Pulse Ox 05/23/22 07:43 37 C 99 H 18 162/78 H 94 05/23/22 06:56 81 05/23/22 04:03 36.8 C 97 H 18 169/80 H 96 05/22/22 23:39 99 H 05/22/22 23:09 36.8 C 91 H 18 153/74 H 97 O2 Del Method 05/23/22 07:43 Room Air 05/23/22 06:56 05/23/22 04:03 Room Air 05/22/22 23:39 05/22/22 23:09 Room Air PG Care Time/CCT Total # of Minutes Spent Total Time Spent with Patient: Total time spent is greater than 50% in coordination of care (as documented) at patient's floor/unit and/or counseling patient: Coding Level of Care Code 75675 Subseq Hosp Care Lvl 2 Diagnoses Vasovagal syncope R55 Status post total right knee replacement Z96.651 History of pulmonary embolism Z86.711 Hx of breast cancer Z85.3 Hypertension I10 Hyperlipidemia E78.5 Diabetes mellitus, type 2 E11.9
--- NOTE | 2022-05-23 09:48 | Orthopedic Progress Note ---
Date of Service May 23, 2022 Assessment & Plan (1) Primary osteoarthritis of right knee: Plan: POD - 4 s/p Right TKA PT/OT. DVT prophylaxis - Rivaroxaban daily, SCD's, BINH's Pain management as written-seems to be better with p.o. Dilaudid. Vasovagal episodes with increased pain. Pain control seems to be adequate for normal ambulation and gentle range of motion exercises. Consider no aggressive range of motion at this time. Also, another consideration is pain management consult for any further pain management ideas. We will see how she does today with her ambulation and range of motion exercises. Admission and Anticipated Discharge Date Admission Date: May 19, 2022 Subjective Postop day 5 Patient lying in bed sitting up. Awake and alert. No complaints this morning. Pain is controlled. States that she was up ambulating yesterday and doing well. However when it came time to do further range of motion exercises with physical therapy, she was trying to bend her knee further than she had and was beginning to experience moderate to severe pain. At that point her blood pressure dropped and she had to lie down. No other incidences of that at this point time. Physical Exam Physical Exam: Jing dressing has scant drainage, dry, and intact. Calves are soft and nontender. Neurovascular is intact. Toes are mobile. Results & Data ([facility]) Vital Signs (Past 12 Hours) Vital Signs Temp Pulse Pulse Pulse Resp BP Pulse Ox 05/23/22 07:43 37 C 99 H 18 162/78 H 94 05/23/22 06:56 81 05/23/22 04:03 36.8 C 97 H 18 169/80 H 96 05/22/22 23:39 99 H 05/22/22 23:09 36.8 C 91 H 18 153/74 H 97 O2 Del Method 05/23/22 07:43 Room Air 05/23/22 06:56 05/23/22 04:03 Room Air 05/22/22 23:39 05/22/22 23:09 Room Air
--- NOTE | 2022-05-24 14:44 | Discharge Summary ---
Date of Service May 24, 2022 Admission HPI Per Admitting Provider 76-year-old female with past medical history significant for diabetes, hypertension, high cholesterol, PE, breast cancer who presents with ongoing right knee pain. She has failed conservative measures. Patient's pain is interfering with her daily activities. She would like proceed with knee replacement. Patient denies headaches, sweats, fevers, chills, double vision, blurred vision, cough, sore throat, dysphagia, chest pain, sob, wheezing, n/v/d/c, numbness, tingling, fatigue, urinary symptoms, mood disorders. ROS positive for right knee pain and stiffness. Admission Exam Per Admitting Provider Physical Exam Constitutional: well developed and well nourished; no acute distress Eyes: PERRL, conjunctivae normal, anicteric sclerae ENMT: external ear and nose normal, oropharynx normal Neck: trachea midline, no thyromegaly Respiratory: normal respiratory effort, lungs clear to auscultation Cardiovascular: RRR, no murmur, no edema Musculoskeletal: Right knee: Varus alignment. Mild joint effusion with medial joint line tenderness. Mild crepitation with motion. Positive Latia's. Stable to valgus and varus stress test. Range of motion is 10 to 100 degrees. Skin: no rashes, warm and dry Neurologic: patellar DTR's 2+ bilat, sensation intact Psychiatric: A+Ox3, euthymic affect Principal Diagnosis Right knee osteoarthritis Discharge Data Allergies Allergy/AdvReac Type Severity Reaction Status Date / Time oxycodone AdvReac Vomiting Verified 05/19/22 11:10 Consultations 05/16/22 10:19 Consult Hospitalist Routine Procedures Performed Operation Date: 05/18/22 09:10 Actual Procedures p Right Total Knee Arthroplasty(Right) - Jayce Rowe MD Ordered Studies 05/18/22 05:00 US - OR guided needle placemen Routine 05/21/22 11:18 CT for pulmonary embolism PE [CT angio chest PE protocol] Stat Hospital Course (1) Primary osteoarthritis of right knee: Patient was admitted on the above-noted date and had the above-noted surgery performed which she tolerated well. On her first postoperative day, I visited the patient approximate around 10:30 AM. She was sitting in her chair at the bedside. She had finished up her physical therapy and stated that she was doing well. Her pain was controlled and she had a mild increase in her creatinine. Dressings were clean, dry, and intact. Calves soft nontender. Neurovascular intact, toes mobile. Hemoglobin was 9.4. She had progress with her physical therapy and going up and down 10 steps. We were making plans for her discharge. Shortly after I saw her that morning, nursing staff was in seeing the patient when she had a vasovagal episode. A CODE BLUE was called and the patient was placed back into her bed. She had apparently passed out at 1 point while nursing was working with her. Patient was regaining consciousness whenever I was walking in. She was having some nausea and vomiting. She was seen by the hospitalist and fiberglass tube molder staff and plans were to have her transferred down to PCU for monitoring. Please see Dr. Messer's notes. After repeating her labs and other studies, it was felt that it was a vasovagal episode. Plans were to monitor her over the next day or so to see how she performed. Patient felt that her oxycodone was not controlling her pain and she was switched to [place] 12/20/2024. Metoprolol and lisinopril have been stopped by the medicine service secondary to the low blood pressures as she was having causing her symptoms. It was felt it was likely due to her intense pain that she had had at certain times. By 05/21/22, it was felt that it was pain related with her vasovagal episodes. Her pain medications was switched to Dilaudid. She was also continued on Tylenol 1000 mg p.o. 3 times daily. Over the next several days the patient was watched and she was slowly progressing. She was remaining medically stable as well as orthopedically stable. By 05/23/2022, she had no complaints. Pain was controlled she stated that she was up the previous day ambulating and doing well. She felt that when she tried to aggressively bend her knee is when she would have the severe pain in the episodes of lightheadedness etc. We discussed that she should not do aggressive range of motion at this time until she has healed a little further along. In therapy she had ambulated approximate 125 feet with a rolling walker. She had no loss of balance. I received a call from Dr. Miranda who felt the patient was stable for discharge. Her hypertensive medications were adjusted she was otherwise remaining stable and was felt she be discharged home. Of note, patient had a history of pulmonary embolus in the past. CTA was done on 05/21/2022 which showed no pulmonary embolus. Total Time Total Time Spent Total Time Spent (In Minutes): 10 Discharge Plan Discharge Items Patient Disposition: Home - Self-Care Reason For Visit: Primary Osteoarthritis of Right Knee Discharge Diagnosis: Osteoarthritis Right Knee Activity: Per Instructions section Weightbearing: Right weightbearing Weightbearing Comment: as tolerated with walker Non-emergency contact: Surgeon Call non-emergency contact if: you have any medication questions, your temperature is above 101.5, your wound has increased redness and your wound has increased drainage Follow-up/Referrals: Trent Serrano DO [Primary Care Provider] - 05/26/22 10:00 am Jayce Rowe MD [Surgeon] - 06/02/22 1:00 pm (Follow up with Dr. Rowe in 2 weeks from the day of surgery for your first post operative visit.) Diet: Carb Consistent or DM2 Addtl Attending Provider Instructions: YOU HAVE BEEN PRESCRIBED HYDROMORPHONE (DILAUDID) FOR YOU PAIN CONTROL. IT HAS BEEN INITIALLY PRESCRIBED 1 MG EVERY 6 HOURS. HOWEVER, YOU MAY DECREASE THE TIMING TO 1MG EVERY 4 HOURS IF YOUR PAIN IS NOT CONTROLLED. ACTIVITY RECOMMENDATIONS: SELF CARE INSTRUCTIONS AFTER TOTAL KNEE REPLACEMENT A. You may need to continue a physical therapy program after discharge from the hospital. There are several options available to you. Your doctor will assist you in selecting the best one for you. 1. An out-patient facility 2 to 3 times a week for therapy or home therapy. 2. Continue working on all exercises taught to you in the hospital. Your goals should be to increase bending of your knee to 90 degrees and beyond and to fully straighten your knee. B. You may progress at your own pace from walking with a walker or crutches to a cane; then to no assistive devices. C. Make walking a part of your daily routine. Be up as much as comfortable with rest periods throughout the day. Rest with leg elevation is very important. Use the ice wrap frequently for the first 3-4 weeks. D. There are no restrictions on activities. You may ride in a car, shop, participate in sharepoint administrator and all social activities. E. Wear the long elastic stockings (BINH hose) 20 hours a day for 2 weeks after surgery. They can be removed several times a day for laundering and for a bath. F. You may shower, no tub baths until cleared by your doctor. SPECIAL CARE INSTRUCTIONS: VERY IMPORTANT TO READ AND REVIEW A. There are a few signs you need to watch for after you are home. Call [facility] if you notice any of the followin. Increased severe knee pain. Some pain is expected especially when you exercise. 2. Increased swelling in your leg or knee; pain or swelling of the calf muscle in either lower leg. 3. Any fluid drainage from the incision. 4. Shortness of breath or chest pain. B. Please call [facility] at if you have any concerns or questions about your operation or recovery. The doctor or his nurse will return your call promptly. C. You must take antibiotics before dental work, bladder, bowel or other surgery. Your doctor will provide you with a permanent care to carry describing this precaution. IMPORTANT: * REMEMBER TO TAKE RIVAROXIBAN, 10 MG, ONCE DAILY FOR 4 WEEKS UNLESS OTHERWISE DIRECTED. THIS IS YOUR BLOOD THINNER.. * CALL IF INCREASED PAIN, REDNESS, DRAINAGE OR FEVER GREATER THAT 101. * WEAR BINH HOSE 20 HOURS PER DAY FOR 2 WEEKS. * CARL Dressing - This is a large suction dressing covering your incision. This will help pull any excess drainage from the wound and allow your incision to heal properly. You may shower with this if you can keep the unit outside of the shower. If any bleeding or leakage is noted please call your doctor's office. This will remain on your incision for 7 days and then should be removed. This can be done yourself or by the home nursing staff if applicable. The entire unit is disposable once removed. Once removed, keep incision clean and dry. If redness or drainage is noted, please call your surgeon. . FOLLOW UP VISIT: If appointment is not already scheduled: Please call [facility] to make a follow-up appointment for 2 weeks after your surgery at . Addtl Taxi Driver Supervisor Provider Instructions: While you are in the hospital you had episodes of passing out due to pain. This is called a vasovagal episode, where your blood pressure drops erratically due to pain or another insult causing you to feel lightheaded and potentially pass out. As your pain became more tolerable, these episodes no longer occurred. Due to these episodes we have held your metoprolol and her lisinopril. You should continue to hold these until you are evaluated again by your primary care doctor. This may lead to your blood pressure being somewhat elevated until you resume that medication, which is okay temporarily as long as you are not having worsening of headaches or chest pain. If you are becoming concerned about your symptoms off of these medications please contact your primary care doctor. Pending Studies at Discharge: No Stand-Alone Forms: [facility], Sm[facility] Cess[facility] Medications and DC Order Prescriptions: New Xarelto 10 mg Tablet 10 mg PO DAILY 30 Days Qty: 30 0RF polyethylene glycol 3350 [Miralax] 17 gram powder in packet 17 g PO DAILY PRN (Reason: constipation) Qty: 5 0RF hydromorphone [Dilaudid] 2 mg Tablet 1 mg PO Q6H PRN (Reason: pain) Qty: 30 0RF Rx Instructions: Ongoing therapy, Dr. Rowe supervising acetaminophen [Tylenol Extra Strength] 500 mg Tablet 1,000 mg PO Q8 Qty: 60 0RF Continued aspirin [Aspir-81] 81 mg Tablet,Delayed Release (Dr/Ec) 81 mg PO HS simvastatin 40 mg Tablet 40 mg PO HS magnesium oxide 400 mg magnesium Capsule 400 mg PO HS metformin 500 mg Tablet 500 mg PO BID Discontinued lisinopril 10 mg Tablet 10 mg PO HS metoprolol tartrate 50 mg Tablet 50 mg PO BID Discharge Orders: Discharge Order (Routine); Ordered 05/23/22 Ordered By: Jimbo Davison Admission Data Admit Date/Time: 05/19/22 15:02 Attending Provider: Urmila Miranda Admit Provider: Jayce Rowe Primary Care Provider: Trent Serrano Other Providers: Meng De La Cruz ; Meng Montiel ; Jayce Rowe Other Interventions: Discharge Summary Assessment (RN) Last Done: 05/23/22 13:34
== END 2022-05-23 15:17 | disposition home health service (06) | DRG 470 ==
LOC: PACUINP 06:38 → ASU 06:38 → 3N 14:06 → 2S 05-19 11:56 → SUATTDRO 05-19 15:02
DX: Z92.3 Personal history of irradiation; Z79.82 Long term (current) use of aspirin; Z96.652 Presence of left artificial knee joint; Z79.84 Long term (current) use of oral hypoglycemic drugs; Z85.3 Personal history of malignant neoplasm of breast; M17.11 Unilateral primary osteoarthritis, right knee; E11.9 Type 2 diabetes mellitus without complications; I10 Essential (primary) hypertension; Z86.711 Personal history of pulmonary embolism; E78.5 Hyperlipidemia, unspecified; G89.18 Other acute postprocedural pain; R55 Syncope and collapse